=== PATIENT | male | born 1950 | race Caucasian/White ===

== ENCOUNTER 2016-06-24 11:38 | Emergency (ER) | payer OTHER ==
[2016-06-24 12:02] VITALS: BP 116/62; BMI 32.1
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
[2016-06-24] MEDS ORDERED: ANCEF VIAL 1 GM IM ONE (13:08)
[2016-06-24] MEDS ORDERED: ANCEF VIAL 1 GM ONE (13:13)
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
[2016-06-24] MEDS ORDERED: NEOSPORIN OINT ONE (13:42)
== END 2016-06-24 13:56 | disposition home or self-care (01) ==
LOC: ER 12:12
DX: S68.119A Complete traumatic metacarpophalangeal amputation of unspecified finger, initial encounter (principal); L08.89 Other specified local infections of the skin and subcutaneous tissue; W45.8XXA Other foreign body or object entering through skin, initial encounter; Y92.9 Unspecified place or not applicable; B95.62 Methicillin resistant Staphylococcus aureus infection as the cause of diseases classified elsewhere; B96.5 Pseudomonas (aeruginosa) (mallei) (pseudomallei) as the cause of diseases classified elsewhere
CPT/HCPCS: 73130; 87070; 87075; 87077; 87186; 87205; 96372; 99282; 99283; J0690

== ENCOUNTER 2021-10-09 09:49 | Observation (INO) ==
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
--- NOTE | 2021-10-09 11:22 | RAD ---
HISTORYPain and swelling diabetesSTUDYLeft foot three viewsCOMPARISONNoneFINDINGSNonspecific osteopenia and mild soft tissue swelling. No fracture, bone destruction, osteomyelitis or joint erosion is identified.IMPRESSIONNo significant osseous or articular abnormality identified.Electronically signed by: TORRES MACIEL (Oct 09, 2021 11:21:20)
[2021-10-09 11:26] LABS: BASOPHILS # (AUTO) 0.1 X10^3/uL (0.0-0.1); BASOPHILS % (AUTO) 0.6 % (0.2-1.0); EOSINOPHILS # (AUTO) 0.1 x10^3/uL (0.0-0.2); EOSINOPHILS % (AUTO) 0.3 % (0.9-2.9); HEMATOCRIT 39.1 % (42.0-54.0); HEMOGLOBIN 13.3 g/dL (13.5-18.0); LYMPHOCYTES # (AUTO) 1.5 X10^3/uL (1.3-2.9); LYMPHOCYTES % (AUTO) 8.7 % (21.0-51.0); MEAN CORPUSCULAR HEMOGLOBIN 30.9 pg (27.0-34.0); MEAN CORPUSCULAR HGB CONC 34.1 g/dL (33.0-35.0); MEAN CORPUSCULAR VOLUME 90.6 fL (80.0-100.0); MEAN PLATELET VOLUME 9.3 fL (7.4-11.0); MONOCYTES # (AUTO) 1.5 x10^3/uL (0.3-0.8); MONOCYTES % (AUTO) 8.9 % (0.0-13.0); NEUTROPHILS % (AUTO) 81.5 % (42.0-75.0); RED BLOOD COUNT 4.31 X10^6/uL (4.7-6.0); RED CELL DISTRIBUTION WIDTH 12.7 % (11.6-16.5); WHITE BLOOD COUNT 17.1 X10^3/uL (3.6-10.0)
[2021-10-09 11:29] LABS: BLOOD UREA NITROGEN 8 mg/dL (7-18); CALCIUM 8.5 mg/dL (8.5-10.1); CARBON DIOXIDE 28.1 mmol/L (21-32); CHLORIDE 100 mmol/L (98-107); COR NA(FOR HYPERGLY) 139 mmol/L (136-145); CREATININE 0.75 mg/dL (0.70-1.30); SODIUM 134 mmol/L (136-145); eGFR NON BLACK RACES > 60 (>60)
[2021-10-09 12:04] LABS: ALANINE AMINOTRANSFERASE 25 Units/L (12-78); ALBUMIN 3.2 g/dL (3.4-5.0); ALKALINE PHOSPHATASE 88 Units/L (46-116); ASPARTATE AMINO TRANSFERASE 13 Units/L (15-37); COR CA(FOR HYPOALB) 9.1 mg/dL (8.5-10.1); TOTAL PROTEIN 6.7 g/dL (6.4-8.2)
[2021-10-09] MEDS ORDERED: ANCEF VIAL 1 GRAM IVP ONE (12:22)
[2021-10-09] MEDS ORDERED: NS 100 ML IV 100 ML ONE (12:54)
[2021-10-09] MEDS ORDERED: ANCEF VIAL 1 GRAM ONE (12:54)
[2021-10-09] MEDS ORDERED: NS 1,000 ML IV 1,000 ML ONE (12:55)
[2021-10-09] MEDS: NS 1,000 ML IV 1,000 ML IV SCH ×2 (12:59→20:43)
[2021-10-09] MEDS ORDERED: NS 1,000 ML IV 1,000 ML IV SCH (14:00)
[2021-10-09] MEDS: ANCEF VIAL 1 GRAM IVP SCH ×2 (14:58→21:11)
[2021-10-09] MEDS ORDERED: NovoLIN R (or HumuLIN R) SUBCUT PRN (18:01)
[2021-10-09] MEDS ORDERED: SNACK - Diabetic Appropriate PO SCH (20:00)
[2021-10-09] MEDS ORDERED: GLUCOPHAGE ONE (20:14)
[2021-10-09] MEDS: GLUCOPHAGE PO SCH (20:39)
[2021-10-09] MEDS: LEVEMIR SC SCH (20:40)
[2021-10-09] MEDS ORDERED: PRAVASTATIN SODIUM 80 MG PO SCH (21:00)
[2021-10-09] MEDS: SNACK - Diabetic Appropriate PO SCH (21:11)
[2021-10-10] MEDS: NS 1,000 ML IV 1,000 ML IV SCH ×3 (05:43→23:19)
[2021-10-10] MEDS: ANCEF VIAL 1 GRAM IVP SCH ×2 (05:44→14:23)
[2021-10-10 06:44] LABS: BASOPHILS # (AUTO) 0.1 X10^3/uL (0.0-0.1); BASOPHILS % (AUTO) 0.5 % (0.2-1.0); EOSINOPHILS # (AUTO) 0.1 x10^3/uL (0.0-0.2); EOSINOPHILS % (AUTO) 0.8 % (0.9-2.9); HEMATOCRIT 36.7 % (42.0-54.0); HEMOGLOBIN 12.4 g/dL (13.5-18.0); LYMPHOCYTES % (AUTO) 13.1 % (21.0-51.0); MEAN CORPUSCULAR HEMOGLOBIN 30.5 pg (27.0-34.0); MEAN CORPUSCULAR HGB CONC 33.7 g/dL (33.0-35.0); MEAN CORPUSCULAR VOLUME 90.5 fL (80.0-100.0); MEAN PLATELET VOLUME 9.2 fL (7.4-11.0); MONOCYTES # (AUTO) 1.3 x10^3/uL (0.3-0.8); MONOCYTES % (AUTO) 8.7 % (0.0-13.0); NEUTROPHILS # (AUTO) 11.5 x10^3/uL (2.2-4.8); NEUTROPHILS % (AUTO) 76.9 % (42.0-75.0); RED BLOOD COUNT 4.05 X10^6/uL (4.7-6.0); RED CELL DISTRIBUTION WIDTH 12.8 % (11.6-16.5)
[2021-10-10 06:58] LABS: ALANINE AMINOTRANSFERASE 15 Units/L (12-78); ALBUMIN 2.7 g/dL (3.4-5.0); ALKALINE PHOSPHATASE 74 Units/L (46-116); ASPARTATE AMINO TRANSFERASE 12 Units/L (15-37); BLOOD UREA NITROGEN 6 mg/dL (7-18); CALCIUM 7.9 mg/dL (8.5-10.1); CARBON DIOXIDE 27.5 mmol/L (21-32); CHLORIDE 104 mmol/L (98-107); COR CA(FOR HYPOALB) 8.9 mg/dL (8.5-10.1); CREATININE 0.75 mg/dL (0.70-1.30); SODIUM 139 mmol/L (136-145); eGFR NON BLACK RACES > 60 (>60)
[2021-10-10] MEDS ORDERED: GLUCOPHAGE ONE (08:57)
[2021-10-10] MEDS ORDERED: FOSINOPRIL 10 MG PO SCH (09:00)
[2021-10-10] MEDS: GLUCOPHAGE PO SCH ×2 (09:15→20:24)
[2021-10-10 11:21] VITALS: BMI 23.6
[2021-10-10] MEDS ORDERED: PATIENT'S HOME MEDICATION PO SCH ×2 (12:00)
[2021-10-10] MEDS: PATIENT'S HOME MEDICATION (Empagliflozin 25 mg Tablet) PO SCH (14:22)
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
--- NOTE | 2021-10-10 14:36 | PCM.PROG ---
Progress Note - Progress Note for Day of Date of Exam: 10/10/21 - Subjective Subjective: PT IS 71 WM ER ADMISSION WITH CELLULITIS TO LEFT FOOT. PT IS CURRENTLY ON IV ANCEF, WILL START ON VANCOMYCIN THIS AM. PT HAS SMALL AREA TO SOLE OF LEFT FOOT THAT APPEARS MORE BLANCHED, POSSIBLE ABSCESS FORMATION. PLAN TO CONSULT DR CHURCH. WBC 15, HGB 12.4, BUN 6, CREAT 0.75. PT REPORTS PAIN IS CONTROLLED AT THIS TIME AND DENIES ANY N/V OR FEBRILE SYMPTOMS. - Past Medical Family Social History Past Med/Fam/Surg Hx: No changes since H&P Allergies: Allergies No Known Drug Allergies Allergy (Verified 02/09/18 12:27) - Review of Systems ROS: No change since H&P - Vital Signs and I&O's Vital Signs: Temperature 98.2 F Pulse Rate [Right] 57 Pulse Rate 76 Respiratory Rate 18 Blood Pressure [Right Arm] 113/55 Blood Pressure 126/56 O2 Sat by Pulse Oximetry 96 Intake and Output: Intake & Output 10/08/21 10/09/21 10/10/21 10/11/21 11:59 11:59 11:59 11:59 Intake Total 1859 Balance 1859 - Physical Exam Oriented: Normal Eyes: Normal Ear: Normal Nose: Normal Throat: Normal Respiratory: Diminished (MILD BILATERAL LUNG BASES) Cardiovascular: Normal : Normal, Hematuria Tenderness: Normal Skin: Red, Tender, Hot, Wound (LEFT MEDIAL AND DORSAL FOOT) Musculoskeletal: Left, Foot, Swelling, Tender Psychiatric: Normal Mood Description: Calm Speech Pattern: Clear - Laboratory and Diagnostics Result Diagrams: 10/10/21 05:58 10/10/21 05:58 Labs: Laboratory WBC 15.0 X10^3/uL (3.6-10.0) H 10/10/21 05:58 RBC 4.05 X10^6/uL (4.7-6.0) L 10/10/21 05:58 Hgb 12.4 g/dL (13.5-18.0) L 10/10/21 05:58 Hct 36.7 % (42.0-54.0) L 10/10/21 05:58 MCV 90.5 fL (80.0-100.0) 10/10/21 05:58 MCH 30.5 pg (27.0-34.0) 10/10/21 05:58 MCHC 33.7 g/dL (33.0-35.0) 10/10/21 05:58 RDW 12.8 % (11.6-16.5) 10/10/21 05:58 Plt Count 165 X10^3/uL (150.0-450.0) 10/10/21 05:58 MPV 9.2 fL (7.4-11.0) 10/10/21 05:58 Neut % (Auto) 76.9 % (42.0-75.0) H 10/10/21 05:58 Lymph % (Auto) 13.1 % (21.0-51.0) L 10/10/21 05:58 Edgar % (Auto) 8.7 % (0.0-13.0) 10/10/21 05:58 Eos % (Auto) 0.8 % (0.9-2.9) L 10/10/21 05:58 Baso % (Auto) 0.5 % (0.2-1.0) 10/10/21 05:58 Neut # (Auto) 11.5 x10^3/uL (2.2-4.8) H 10/10/21 05:58 Lymph # (Auto) 2.0 X10^3/uL (1.3-2.9) 10/10/21 05:58 Edgar # (Auto) 1.3 x10^3/uL (0.3-0.8) H 10/10/21 05:58 Eos # (Auto) 0.1 x10^3/uL (0.0-0.2) 10/10/21 05:58 Baso # (Auto) 0.1 X10^3/uL (0.0-0.1) 10/10/21 05:58 Absolute Nucleated RBC 0.1 /100WBC 10/10/21 05:58 Sodium 139 mmol/L (136-145) 10/10/21 05:58 Corrected Sodium TNP 10/10/21 05:58 Potassium 3.5 mmol/L (3.5-5.1) 10/10/21 05:58 Chloride 104 mmol/L (98-107) 10/10/21 05:58 Carbon Dioxide 27.5 mmol/L (21-32) 10/10/21 05:58 BUN 6 mg/dL (7-18) L 10/10/21 05:58 Creatinine 0.75 mg/dL (0.70-1.30) 10/10/21 05:58 Est GFR (MDRD) Af Amer > 60 (>60) 10/10/21 05:58 Est GFR (MDRD) Non-Af > 60 (>60) 10/10/21 05:58 Glucose 109 mg/dL (65-99) H 10/10/21 05:58 POC Glucose (mg/dL) 115 mg/dL (65-99) H 10/10/21 11:24 Hemoglobin A1c 8.1 % 10/10/21 05:58 Lactic Acid 1.4 mmol/L (0.4-2.0) 10/09/21 11:47 Calcium 7.9 mg/dL (8.5-10.1) L 10/10/21 05:58 Corrected Calcium 8.9 mg/dL (8.5-10.1) 10/10/21 05:58 Total Bilirubin 0.60 mg/dL (0.2-1.0) 10/10/21 05:58 AST 12 Units/L (15-37) L 10/10/21 05:58 ALT 15 Units/L (12-78) 10/10/21 05:58 Alkaline Phosphatase 74 Units/L (46-116) 10/10/21 05:58 Total Protein 6.0 g/dL (6.4-8.2) L 10/10/21 05:58 Albumin 2.7 g/dL (3.4-5.0) L 10/10/21 05:58 Globulin 3.3 g/dL (2.5-4.5) 10/10/21 05:58 Albumin/Globulin Ratio 0.8 Ratio (1.1-2.1) L 10/10/21 05:58 SARS-CoV-2 (PCR) Negative (NEGATIVE) 10/09/21 12:41 - Plan (1) Cellulitis of left foot Status: Acute Plan: BLOOD AND WOUND CULTURE OBTAINED. IV ATBX, PAIN CONTROL PRN. XRAY LEFT FOOT OBTAINED IN ER. BP AND BS CONTROL, VERIFY AND RESUME HOME MEDICATION (2) Diabetes Status: Acute
[2021-10-10] MEDS ORDERED: PHARMACY COMMENT IV SCH (15:00)
[2021-10-10] MEDS ORDERED: PHARMACY CONSULT - VANCOMYCIN XX SCH (15:00)
[2021-10-10] MEDS ORDERED: VANCOMYCIN IV *PREMIX 1 G/200 ML BAG 1 G/200 ML PIGGYBACK IV ONE (16:30)
[2021-10-10] MEDS: VANCOMYCIN 1 GRAM PREMIX (ADDVANTAGE) 250 ML IV SCH (16:40)
[2021-10-10] MEDS: LEVEMIR SC SCH (20:19)
[2021-10-10] MEDS: PRAVACHOL PO SCH (20:21)
[2021-10-10] MEDS: SNACK - Diabetic Appropriate PO SCH (20:24)
[2021-10-11] MEDS ORDERED: VANCOMYCIN HCL ONE (03:49)
[2021-10-11] MEDS ORDERED: NS 250 ML IV 250 ML IV ONE (03:49)
[2021-10-11] MEDS: VANCOMYCIN 1 GRAM PREMIX (ADDVANTAGE) 250 ML IV SCH (04:00)
[2021-10-11] MEDS ORDERED: D50W ABBOJECT SYR IV ONE (05:58)
[2021-10-11] MEDS ORDERED: D50W ABBOJECT SYR ONE (05:59)
[2021-10-11] MEDS: NS 1,000 ML IV 1,000 ML IV SCH ×3 (06:19→22:19)
[2021-10-11 06:21] LABS: BASOPHILS % (AUTO) 0.3 % (0.2-1.0); EOSINOPHILS # (AUTO) 0.1 x10^3/uL (0.0-0.2); EOSINOPHILS % (AUTO) 0.8 % (0.9-2.9); HEMATOCRIT 36.1 % (42.0-54.0); HEMOGLOBIN 12.6 g/dL (13.5-18.0); LYMPHOCYTES # (AUTO) 1.8 X10^3/uL (1.3-2.9); LYMPHOCYTES % (AUTO) 13.7 % (21.0-51.0); MEAN CORPUSCULAR HEMOGLOBIN 31.2 pg (27.0-34.0); MEAN CORPUSCULAR HGB CONC 34.8 g/dL (33.0-35.0); MEAN CORPUSCULAR VOLUME 89.4 fL (80.0-100.0); MEAN PLATELET VOLUME 9.5 fL (7.4-11.0); MONOCYTES # (AUTO) 1.3 x10^3/uL (0.3-0.8); MONOCYTES % (AUTO) 9.9 % (0.0-13.0); NEUTROPHILS % (AUTO) 75.3 % (42.0-75.0); RED BLOOD COUNT 4.03 X10^6/uL (4.7-6.0); RED CELL DISTRIBUTION WIDTH 13.1 % (11.6-16.5); WHITE BLOOD COUNT 13.2 X10^3/uL (3.6-10.0)
[2021-10-11 06:38] LABS: ALANINE AMINOTRANSFERASE 14 Units/L (12-78); ALBUMIN 2.5 g/dL (3.4-5.0); ALKALINE PHOSPHATASE 93 Units/L (46-116); ASPARTATE AMINO TRANSFERASE 11 Units/L (15-37); BLOOD UREA NITROGEN 9 mg/dL (7-18); CALCIUM 8.1 mg/dL (8.5-10.1); CARBON DIOXIDE 27.8 mmol/L (21-32); CHLORIDE 105 mmol/L (98-107); COR CA(FOR HYPOALB) 9.3 mg/dL (8.5-10.1); SODIUM 140 mmol/L (136-145); eGFR NON BLACK RACES > 60 (>60)
[2021-10-11] MEDS: VANCOMYCIN IV *PREMIX 1 G/200 ML BAG 1 G/200 ML PIGGYBACK IV SCH ×2 (09:30→20:56)
[2021-10-11] MEDS: GLUCOPHAGE PO SCH (10:03)
[2021-10-11] MEDS: PATIENT'S HOME MEDICATION (Empagliflozin 25 mg Tablet) PO SCH (11:32)
--- NOTE | 2021-10-11 14:38 | CT ---
HISTORYLEFT FOOT cellulitisSTUDYCT left foot with IV contrastCOMPARISONNoneTECHNIQUEMultiple axial images of the left foot are obtained following the administration of IV contrast. Coronal and sagittal reformats were performed and reviewed. Dose reduction techniques including Automated Exposure Control (AEC) and adjustment of mA and kV were utilized.FINDINGSDiffuse edema is seen in the lower leg, ankle, and left foot. No evidence of an abscess is seen. Arthritic changes are seen in the ankle, foot, and toes. No fracture or dislocation is seen. There is no evidence of bone destruction to suggest osteomyelitis.IMPRESSIONDiffuse edema could be bland edema or cellulitis. No evidence of abscess or osteomyelitis is seen.Electronically signed by: Silvio Shook (Oct 11, 2021 14:36:18)
[2021-10-11] MEDS ORDERED: TRAMADOL ACETAMINOPHEN PO PRN (17:34)
[2021-10-11] MEDS ORDERED: ZOLOFT ONE (20:22)
[2021-10-11] MEDS: SNACK - Diabetic Appropriate PO SCH (20:55)
[2021-10-11] MEDS: PRAVACHOL PO SCH (20:56)
[2021-10-11] MEDS ORDERED: ZOLOFT PO SCH (21:00)
[2021-10-11] MEDS ORDERED: LEVEMIR SC SCH (21:00)
[2021-10-11] MEDS ORDERED: LIPITOR TAB 20 MG PO SCH (21:00)
[2021-10-12 05:38] LABS: BASOPHILS # (AUTO) 0.1 X10^3/uL (0.0-0.1); BASOPHILS % (AUTO) 0.5 % (0.2-1.0); EOSINOPHILS # (AUTO) 0.2 x10^3/uL (0.0-0.2); EOSINOPHILS % (AUTO) 1.7 % (0.9-2.9); HEMOGLOBIN 12.8 g/dL (13.5-18.0); LYMPHOCYTES # (AUTO) 1.8 X10^3/uL (1.3-2.9); LYMPHOCYTES % (AUTO) 16.8 % (21.0-51.0); MEAN CORPUSCULAR HEMOGLOBIN 31.1 pg (27.0-34.0); MEAN CORPUSCULAR HGB CONC 34.7 g/dL (33.0-35.0); MEAN CORPUSCULAR VOLUME 89.6 fL (80.0-100.0); MONOCYTES # (AUTO) 1.1 x10^3/uL (0.3-0.8); MONOCYTES % (AUTO) 10.6 % (0.0-13.0); NEUTROPHILS # (AUTO) 7.6 x10^3/uL (2.2-4.8); NEUTROPHILS % (AUTO) 70.4 % (42.0-75.0); RED BLOOD COUNT 4.13 X10^6/uL (4.7-6.0); RED CELL DISTRIBUTION WIDTH 13.1 % (11.6-16.5); WHITE BLOOD COUNT 10.8 X10^3/uL (3.6-10.0)
[2021-10-12 05:57] LABS: ALANINE AMINOTRANSFERASE 14 Units/L (12-78); ALBUMIN 2.5 g/dL (3.4-5.0); ALKALINE PHOSPHATASE 76 Units/L (46-116); ASPARTATE AMINO TRANSFERASE 13 Units/L (15-37); BLOOD UREA NITROGEN 11 mg/dL (7-18); CALCIUM 8.1 mg/dL (8.5-10.1); CARBON DIOXIDE 28.8 mmol/L (21-32); CHLORIDE 106 mmol/L (98-107); COR CA(FOR HYPOALB) 9.3 mg/dL (8.5-10.1); COR NA(FOR HYPERGLY) 141 mmol/L (136-145); CREATININE 0.73 mg/dL (0.70-1.30); SODIUM 139 mmol/L (136-145); TOTAL PROTEIN 6.1 g/dL (6.4-8.2); eGFR NON BLACK RACES > 60 (>60)
[2021-10-12] MEDS: NS 1,000 ML IV 1,000 ML IV SCH (07:31)
[2021-10-12] MEDS ORDERED: TYLENOL 500 MG TAB EXTRA STRENGTH PO PRN (07:36)
[2021-10-12] MEDS ORDERED: ULTRAM PO PRN (07:36)
[2021-10-12] MEDS: PATIENT'S HOME MEDICATION (Empagliflozin 25 mg Tablet) PO SCH (08:14)
[2021-10-12] MEDS: VANCOMYCIN IV *PREMIX 1 G/200 ML BAG 1 G/200 ML PIGGYBACK IV SCH (08:15)
[2021-10-12 12:02] VITALS: BP 142/63
[2021-10-12] MEDS ORDERED: PHARMACY COMMENT IV NR (20:30)
== END 2021-10-12 14:15 | disposition home or self-care (01) ==
LOC: MED/SURG 09:59 → ER 09:59 → MED/SURG 13:50
PROVIDERS: ADMIT Internal Medicine; ATTEND Internal Medicine
DX: B96.4 Proteus (mirabilis) (morganii) as the cause of diseases classified elsewhere; F41.8 Other specified anxiety disorders; L03.116 Cellulitis of left lower limb; Z86.14 Personal history of Methicillin resistant Staphylococcus aureus infection; E11.65 Type 2 diabetes mellitus with hyperglycemia; B96.1 Klebsiella pneumoniae [K. pneumoniae] as the cause of diseases classified elsewhere; E78.2 Mixed hyperlipidemia; Z20.822 Contact with and (suspected) exposure to COVID-19

== ENCOUNTER 2022-01-25 15:40 | Inpatient (IN) ==
[2022-01-25] MEDS: NS 1,000 ML IV 1,000 ML IV SCH (17:00)
[2022-01-25] MEDS: ZOSYN VIAL 3.375 GRAMS 3.375 G in NS 100 ML IV 100 ML IV SCH ×2 (17:00→21:31)
[2022-01-25 17:50] VITALS: BMI 23.4
[2022-01-25 18:05] LABS: BASOPHILS # (AUTO) 0.1 X10^3/uL (0.0-0.1); BASOPHILS % (AUTO) 0.5 % (0.2-1.0); EOSINOPHILS # (AUTO) 0.1 x10^3/uL (0.0-0.2); EOSINOPHILS % (AUTO) 0.8 % (0.9-2.9); HEMATOCRIT 39.9 % (42.0-54.0); HEMOGLOBIN 13.9 g/dL (13.5-18.0); LYMPHOCYTES # (AUTO) 1.6 X10^3/uL (1.3-2.9); LYMPHOCYTES % (AUTO) 16.6 % (21.0-51.0); MEAN CORPUSCULAR HEMOGLOBIN 31.3 pg (27.0-34.0); MEAN CORPUSCULAR HGB CONC 34.8 g/dL (33.0-35.0); MEAN CORPUSCULAR VOLUME 89.7 fL (80.0-100.0); MONOCYTES # (AUTO) 1.1 x10^3/uL (0.3-0.8); MONOCYTES % (AUTO) 11.6 % (0.0-13.0); NEUTROPHILS # (AUTO) 6.9 x10^3/uL (2.2-4.8); NEUTROPHILS % (AUTO) 70.5 % (42.0-75.0); RED BLOOD COUNT 4.45 X10^6/uL (4.7-6.0); RED CELL DISTRIBUTION WIDTH 12.7 % (11.6-16.5); WHITE BLOOD COUNT 9.8 X10^3/uL (3.6-10.0)
[2022-01-25 18:14] LABS: ALANINE AMINOTRANSFERASE 17 Units/L (12-78); ALBUMIN 3.2 g/dL (3.4-5.0); ALKALINE PHOSPHATASE 85 Units/L (46-116); ASPARTATE AMINO TRANSFERASE 14 Units/L (15-37); BLOOD UREA NITROGEN 20 mg/dL (7-18); CALCIUM 8.8 mg/dL (8.5-10.1); CARBON DIOXIDE 26.4 mmol/L (21-32); CHLORIDE 102 mmol/L (98-107); COR CA(FOR HYPOALB) 9.4 mg/dL (8.5-10.1); COR NA(FOR HYPERGLY) 140 mmol/L (136-145); CREATININE 1.09 mg/dL (0.70-1.30); SODIUM 139 mmol/L (136-145); eGFR NON BLACK RACES > 60 (>60)
[2022-01-25] MEDS: NovoLIN R (or HumuLIN R) SUBCUT PRN (21:32)
[2022-01-26] MEDS: ZOSYN VIAL 3.375 GRAMS 3.375 G in NS 100 ML IV 100 ML IV SCH ×3 (05:19→21:34)
[2022-01-26 05:30] LABS: BASOPHILS # (AUTO) 0.1 X10^3/uL (0.0-0.1); BASOPHILS % (AUTO) 0.7 % (0.2-1.0); EOSINOPHILS # (AUTO) 0.2 x10^3/uL (0.0-0.2); EOSINOPHILS % (AUTO) 2.6 % (0.9-2.9); HEMATOCRIT 37.5 % (42.0-54.0); HEMOGLOBIN 13.1 g/dL (13.5-18.0); LYMPHOCYTES # (AUTO) 2.3 X10^3/uL (1.3-2.9); LYMPHOCYTES % (AUTO) 27.8 % (21.0-51.0); MEAN CORPUSCULAR HGB CONC 34.8 g/dL (33.0-35.0); MEAN CORPUSCULAR VOLUME 89.1 fL (80.0-100.0); MEAN PLATELET VOLUME 9.4 fL (7.4-11.0); MONOCYTES % (AUTO) 12.6 % (0.0-13.0); NEUTROPHILS # (AUTO) 4.6 x10^3/uL (2.2-4.8); NEUTROPHILS % (AUTO) 56.3 % (42.0-75.0); RED BLOOD COUNT 4.21 X10^6/uL (4.7-6.0); RED CELL DISTRIBUTION WIDTH 12.7 % (11.6-16.5); WHITE BLOOD COUNT 8.2 X10^3/uL (3.6-10.0)
[2022-01-26 05:44] LABS: ALANINE AMINOTRANSFERASE 15 Units/L (12-78); ALBUMIN 2.9 g/dL (3.4-5.0); ALKALINE PHOSPHATASE 74 Units/L (46-116); ASPARTATE AMINO TRANSFERASE 14 Units/L (15-37); BLOOD UREA NITROGEN 17 mg/dL (7-18); CALCIUM 8.3 mg/dL (8.5-10.1); CARBON DIOXIDE 26.7 mmol/L (21-32); CHLORIDE 105 mmol/L (98-107); COR CA(FOR HYPOALB) 9.2 mg/dL (8.5-10.1); CREATININE 0.97 mg/dL (0.70-1.30); SODIUM 141 mmol/L (136-145); TOTAL PROTEIN 6.4 g/dL (6.4-8.2); eGFR NON BLACK RACES > 60 (>60)
[2022-01-26] MEDS: NS 1,000 ML IV 1,000 ML IV SCH ×3 (06:52→19:13)
[2022-01-26] MEDS: LOVENOX INJ 40 MG SYR SC SCH (09:35)
[2022-01-26] MEDS ORDERED: [UNRECOGNIZED DRUG - OTHER] subcut SCH (10:15)
[2022-01-26] MEDS ORDERED: INSULIN ASPART U 100 UNIT/ML subcut SCH (10:15)
[2022-01-26] MEDS ORDERED: PHARMACY CONSULT - VANCOMYCIN XX SCH (11:00)
[2022-01-26] MEDS: PATIENT'S HOME MEDICATION (Empagliflozin 25 mg Tablet) PO SCH (11:15)
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
[2022-01-26] MEDS: ASPIRIN EC 81 MG PO SCH (12:00)
[2022-01-26] MEDS: LIPITOR TAB 40 MG PO SCH (12:00)
[2022-01-26] MEDS: ZESTRIL TAB 20 MG PO SCH (12:00)
[2022-01-26] MEDS: VANCOMYCIN IV *PREMIX 1 G/200 ML BAG 1 G/200 ML PIGGYBACK IV SCH ×2 (12:30→20:19)
[2022-01-26] MEDS ORDERED: ZESTRIL TAB 20 MG ONE (13:09)
--- NOTE | 2022-01-26 16:56 | RAD ---
HISTORYCELLULITIS, LEFT HAND 4TH DIGITSTUDYHAND, LEFT x-ray three viewsCOMPARISONNoneFINDINGSPrior amputation of the 2nd and 3rd fingers. Soft tissue swelling is seen in the 4th finger. The cannot be extended limiting evaluation. No obvious bone destruction or fracture is seen. A few small metallic foreign bodies are suspected in the soft tissues of the palmar aspect of the hand near the 5th metatarsal and in the 5th finger. [id number] arthritic changes are seen in the remaining MTP joints. Mild arthritic changes are seen in the wrist. No gas is seen in the soft tissues.IMPRESSIONSoft tissue swelling is seen in the 4th finger without evidence of osteomyelitis.Electronically signed by: Slivio Shook (Jan 26, 2022 16:54:38)
[2022-01-26] MEDS: SNACK - Diabetic Appropriate PO SCH (19:40)
[2022-01-26] MEDS ORDERED: ZOLOFT ONE (20:09)
[2022-01-26] MEDS: ZOLOFT PO SCH (20:17)
[2022-01-26] MEDS: NovoLIN R (or HumuLIN R) SUBCUT PRN (20:20)
[2022-01-27] MEDS: NS 1,000 ML IV 1,000 ML IV SCH ×3 (04:11→21:09)
[2022-01-27 04:56] LABS: BASOPHILS # (AUTO) 0.1 X10^3/uL (0.0-0.1); BASOPHILS % (AUTO) 0.7 % (0.2-1.0); EOSINOPHILS # (AUTO) 0.3 x10^3/uL (0.0-0.2); HEMATOCRIT 38.3 % (42.0-54.0); HEMOGLOBIN 13.1 g/dL (13.5-18.0); LYMPHOCYTES # (AUTO) 2.4 X10^3/uL (1.3-2.9); LYMPHOCYTES % (AUTO) 27.5 % (21.0-51.0); MEAN CORPUSCULAR HEMOGLOBIN 30.8 pg (27.0-34.0); MEAN CORPUSCULAR HGB CONC 34.3 g/dL (33.0-35.0); MEAN PLATELET VOLUME 9.1 fL (7.4-11.0); MONOCYTES # (AUTO) 0.9 x10^3/uL (0.3-0.8); MONOCYTES % (AUTO) 10.3 % (0.0-13.0); NEUTROPHILS # (AUTO) 5.1 x10^3/uL (2.2-4.8); NEUTROPHILS % (AUTO) 58.5 % (42.0-75.0); RED BLOOD COUNT 4.26 X10^6/uL (4.7-6.0); RED CELL DISTRIBUTION WIDTH 12.8 % (11.6-16.5); WHITE BLOOD COUNT 8.7 X10^3/uL (3.6-10.0)
[2022-01-27 05:09] LABS: ALANINE AMINOTRANSFERASE 15 Units/L (12-78); ALBUMIN 2.8 g/dL (3.4-5.0); ALKALINE PHOSPHATASE 70 Units/L (46-116); ASPARTATE AMINO TRANSFERASE 14 Units/L (15-37); BLOOD UREA NITROGEN 14 mg/dL (7-18); CALCIUM 8.3 mg/dL (8.5-10.1); CARBON DIOXIDE 25.4 mmol/L (21-32); CHLORIDE 107 mmol/L (98-107); COR CA(FOR HYPOALB) 9.3 mg/dL (8.5-10.1); CREATININE 0.84 mg/dL (0.70-1.30); SODIUM 142 mmol/L (136-145); TOTAL PROTEIN 6.4 g/dL (6.4-8.2); eGFR NON BLACK RACES > 60 (>60)
[2022-01-27] MEDS: ZOSYN VIAL 3.375 GRAMS 3.375 G in NS 100 ML IV 100 ML IV SCH ×3 (05:13→21:22)
[2022-01-27] MEDS: ASPIRIN EC 81 MG PO SCH (10:15)
[2022-01-27] MEDS: ZESTRIL TAB 20 MG PO SCH (10:15)
[2022-01-27] MEDS: LIPITOR TAB 40 MG PO SCH (10:15)
[2022-01-27] MEDS ORDERED: ZESTRIL TAB 20 MG ONE (10:32)
[2022-01-27] MEDS: VANCOMYCIN IV *PREMIX 1 G/200 ML BAG 1 G/200 ML PIGGYBACK IV SCH ×2 (10:36→21:11)
[2022-01-27] MEDS: LOVENOX INJ 40 MG SYR SC SCH (10:37)
[2022-01-27] MEDS: PATIENT'S HOME MEDICATION (Empagliflozin 25 mg Tablet) PO SCH (15:09)
[2022-01-27] MEDS: ALOGLIPTIN 25 MG PO SCH (15:09)
--- NOTE | 2022-01-27 17:31 | DR.PROGNOT ---
Hospital Progress Notes - Progress Note for Day of: Progress Note Date: 01/27/22 - Chief Complaint Chief Complaint: slow improvement with less swelling and minimal drainage Lt 4th finger . Xray aa; no osteomyelitis .. - Past Medical Family Social History Past Med/Fam/Surg Hx: No changes since H&P Allergies: Allergies No Known Drug Allergies Allergy (Verified 02/09/18 12:27) - Review Of Systems ROS: No change since H&P - Vital Signs Vital Signs: Temperature 97.9 F Pulse Rate [Bilateral Radial] 52 Pulse Rate 76 Respiratory Rate 18 Blood Pressure [Right Arm] 113/55 O2 Sat by Pulse Oximetry 95 - Physical Exam Oriented: Normal Eyes: Normal Ear: Normal Nose: Normal Throat: Normal Respiratory: Normal Cardiovascular: Normal : Normal Skin: Other (erythema Lt 4th finger is less .. still stiff and swollen ) Speech Pattern: Clear, Appropriate - Laboratory and Diagnostics Result Diagrams: 01/27/22 04:10 01/27/22 04:10 Labs: 01/25/22 17:50 Blood Blood Culture - Preliminary 01/25/22 17:40 Blood Blood Culture - Preliminary Laboratory WBC 8.7 X10^3/uL (3.6-10.0) 01/27/22 04:10 RBC 4.26 X10^6/uL (4.7-6.0) L 01/27/22 04:10 Hgb 13.1 g/dL (13.5-18.0) L 01/27/22 04:10 Hct 38.3 % (42.0-54.0) L 01/27/22 04:10 MCV 90.0 fL (80.0-100.0) 01/27/22 04:10 MCH 30.8 pg (27.0-34.0) 01/27/22 04:10 MCHC 34.3 g/dL (33.0-35.0) 01/27/22 04:10 RDW 12.8 % (11.6-16.5) 01/27/22 04:10 Plt Count 207 X10^3/uL (150.0-450.0) 01/27/22 04:10 MPV 9.1 fL (7.4-11.0) 01/27/22 04:10 Neut % (Auto) 58.5 % (42.0-75.0) 01/27/22 04:10 Lymph % (Auto) 27.5 % (21.0-51.0) 01/27/22 04:10 [place] % (Auto) 10.3 % (0.0-13.0) 01/27/22 04:10 Eos % (Auto) 3.0 % (0.9-2.9) H 01/27/22 04:10 Baso % (Auto) 0.7 % (0.2-1.0) 01/27/22 04:10 Neut # (Auto) 5.1 x10^3/uL (2.2-4.8) H 01/27/22 04:10 Lymph # (Auto) 2.4 X10^3/uL (1.3-2.9) 01/27/22 04:10 [place] # (Auto) 0.9 x10^3/uL (0.3-0.8) H 01/27/22 04:10 Eos # (Auto) 0.3 x10^3/uL (0.0-0.2) H 01/27/22 04:10 Baso # (Auto) 0.1 X10^3/uL (0.0-0.1) 01/27/22 04:10 Absolute Nucleated RBC 0.0 /100WBC 01/27/22 04:10 Sodium 142 mmol/L (136-145) 01/27/22 04:10 Corrected Sodium TNP 01/27/22 04:10 Potassium 3.9 mmol/L (3.5-5.1) 01/27/22 04:10 Chloride 107 mmol/L (98-107) 01/27/22 04:10 Carbon Dioxide 25.4 mmol/L (21-32) 01/27/22 04:10 BUN 14 mg/dL (7-18) 01/27/22 04:10 Creatinine 0.84 mg/dL (0.70-1.30) 01/27/22 04:10 Est GFR (MDRD) Af Amer > 60 (>60) 01/27/22 04:10 Est GFR (MDRD) Non-Af > 60 (>60) 01/27/22 04:10 Glucose 87 mg/dL (65-99) 01/27/22 04:10 POC Glucose (mg/dL) 153 mg/dL (65-99) H 01/27/22 15:56 Calcium 8.3 mg/dL (8.5-10.1) L 01/27/22 04:10 Corrected Calcium 9.3 mg/dL (8.5-10.1) 01/27/22 04:10 Total Bilirubin 0.40 mg/dL (0.2-1.0) 01/27/22 04:10 AST 14 Units/L (15-37) L 01/27/22 04:10 ALT 15 Units/L (12-78) 01/27/22 04:10 Alkaline Phosphatase 70 Units/L (46-116) 01/27/22 04:10 C-Reactive Protein 29.30 mg/L (0-3.0) H 01/25/22 17:40 Total Protein 6.4 g/dL (6.4-8.2) 01/27/22 04:10 Albumin 2.8 g/dL (3.4-5.0) L 01/27/22 04:10 Globulin 3.6 g/dL (2.5-4.5) 01/27/22 04:10 Albumin/Globulin Ratio 0.8 Ratio (1.1-2.1) L 01/27/22 04:10 - Assessment and Plan 1: infected wound Lt 4 th finger . dep cellulitis . DM .. same local care ,soak in saline and H2O2 . IV ABT . to follow as out Pt
[2022-01-27] MEDS ORDERED: HYDROGEN PEROXIDE 3% ONE (18:06)
[2022-01-27] MEDS: SNACK - Diabetic Appropriate PO SCH (19:52)
[2022-01-27] MEDS ORDERED: PHARMACY COMMENT IV NR (20:30)
[2022-01-27 20:38] LABS: CREATININE 0.97 mg/dL (0.70-1.30); VANCOMYCIN,TROUGH 10.4 ug/mL (15-20)
[2022-01-27] MEDS ORDERED: ZOLOFT ONE (20:50)
[2022-01-27] MEDS: ZOLOFT PO SCH (21:07)
[2022-01-28 05:16] LABS: BASOPHILS # (AUTO) 0.1 X10^3/uL (0.0-0.1); BASOPHILS % (AUTO) 0.8 % (0.2-1.0); EOSINOPHILS # (AUTO) 0.3 x10^3/uL (0.0-0.2); EOSINOPHILS % (AUTO) 3.7 % (0.9-2.9); HEMATOCRIT 37.7 % (42.0-54.0); LYMPHOCYTES # (AUTO) 2.5 X10^3/uL (1.3-2.9); LYMPHOCYTES % (AUTO) 31.3 % (21.0-51.0); MEAN CORPUSCULAR HEMOGLOBIN 30.8 pg (27.0-34.0); MEAN CORPUSCULAR HGB CONC 34.3 g/dL (33.0-35.0); MEAN CORPUSCULAR VOLUME 89.6 fL (80.0-100.0); MONOCYTES # (AUTO) 0.9 x10^3/uL (0.3-0.8); MONOCYTES % (AUTO) 10.7 % (0.0-13.0); NEUTROPHILS # (AUTO) 4.3 x10^3/uL (2.2-4.8); NEUTROPHILS % (AUTO) 53.5 % (42.0-75.0); RED BLOOD COUNT 4.21 X10^6/uL (4.7-6.0); RED CELL DISTRIBUTION WIDTH 12.8 % (11.6-16.5)
[2022-01-28] MEDS: ZOSYN VIAL 3.375 GRAMS 3.375 G in NS 100 ML IV 100 ML IV SCH ×3 (05:20→21:50)
[2022-01-28 05:24] LABS: ALANINE AMINOTRANSFERASE 16 Units/L (12-78); ALBUMIN 2.7 g/dL (3.4-5.0); ALKALINE PHOSPHATASE 69 Units/L (46-116); ASPARTATE AMINO TRANSFERASE 14 Units/L (15-37); BLOOD UREA NITROGEN 12 mg/dL (7-18); CALCIUM 8.2 mg/dL (8.5-10.1); CARBON DIOXIDE 28.4 mmol/L (21-32); CHLORIDE 106 mmol/L (98-107); COR CA(FOR HYPOALB) 9.2 mg/dL (8.5-10.1); COR NA(FOR HYPERGLY) 144 mmol/L (136-145); CREATININE 0.83 mg/dL (0.70-1.30); SODIUM 143 mmol/L (136-145); TOTAL PROTEIN 6.2 g/dL (6.4-8.2); eGFR NON BLACK RACES > 60 (>60)
[2022-01-28] MEDS ORDERED: ZESTRIL TAB 20 MG ONE (09:43)
[2022-01-28] MEDS: NS 1,000 ML IV 1,000 ML IV SCH ×2 (09:47→23:57)
[2022-01-28] MEDS: ASPIRIN EC 81 MG PO SCH (09:47)
[2022-01-28] MEDS: LOVENOX INJ 40 MG SYR SC SCH (09:47)
[2022-01-28] MEDS: ZESTRIL TAB 20 MG PO SCH (09:47)
[2022-01-28] MEDS: LIPITOR TAB 40 MG PO SCH (09:48)
[2022-01-28] MEDS: VANCOMYCIN IV *PREMIX 1 G/200 ML BAG 1 G/200 ML PIGGYBACK IV SCH ×2 (09:48→20:38)
[2022-01-28] MEDS: BACTROBAN TOPICAL OINT TOP SCH (09:48)
[2022-01-28] MEDS: PATIENT'S HOME MEDICATION (Empagliflozin 25 mg Tablet) PO SCH (10:02)
[2022-01-28] MEDS: ALOGLIPTIN 25 MG PO SCH (10:02)
--- NOTE | 2022-01-28 10:34 | PCM.PROG ---
Progress Note - Progress Note for Day of Date of Exam: 01/27/22 - Subjective Subjective: WAS ADMITTED FOR CELLULITIS OF THE 4TH DIGIT ON THE LEFT HAND DUE TO RECENT INJURY. PATIENT WAS APPARENTLY SKINNING A DEER AND CUT HIS FINGER. 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 TODAY, HE IS ALERT AND ORIENTED, LYING IN BED ON MORNING ROUNDS. HE COMPLAINS OF MILD PAIN TO THE FINGER, BUT DENIES OTHER COMPLAINTS. ON EXAMINATION, HEART IS REGULAR IN RATE AND RHYTHM. BILATERAL LUNGS ARE CLEAR TO AUSCULTATION. ABDOMEN IS ROUND, SOFT, AND NON-TENDER WITH NORMAL BOWEL SOUNDS NOTED IN ALL QUADRANTS. THERE IS A LACERATION NOTED TO THE DISTAL PHALANX OF THE 4TH DIGIT ON THE LEFT HAND. ERYTHEMA AND EDEMA OF THAT DIGIT IS NOTED. IT HAS NOT SIGNIFICANTLY IMPROVED SINCE YESTERDAY. NO LOWER EXTREMITY EDEMA NOTED. HIS VITALS THIS MORNING ARE: 97.9-62-16-100%-119/57. LABS WERE OBTAINED. WBC 8.7, RBC 4.26, HGB 13.1, HCT 38.3, PLT COUNT 207, SODIUM 142, POTASSIUM 3.9, CHLORIDE 107, BUN 14, CREATININE 0.84, GLUCOSE 87, CALCIUM 8.3, TOTAL BILI 0.40, AST 14, ALT 15, ALK PHOS 70, TOTAL PROTEIN 6.4, ALBUMIN 2.8. WOUND CULTURE IS POSITIVE FOR STREPTOCOCCUS AGALACTIAE (GROUP B STREP). LEFT HAND XRAY WAS OBTAINED YESTERDAY AND REVEALED: Soft tissue swelling is seen in the 4th finger without evidence of osteomyelitis. HE IS CURRENTLY RECEIVING NORMAL SALINE AT 80 ML/HR, VANCOMYCIN 1G IV BID, ZOSYN 3.375G IV TID, OTBS ACHS, HUMULIN R SLIDING SCALE, LOVENOX 40MG SC DAILY, AND HIS HOME MEDICATIONS WERE RESUMED. WE WILL CONTINUE WITH CURRENT PLAN OF CARE TODAY. OTHERWISE, WE PLAN TO FOLLOW-UP WITH AM LABS AND CONTINUE TO MONITOR. TIME SPENT ON CLINICAL ASSESSMENT, REVIWING LABS AND IMAGING, DECISION MAKING, AND DOCUMENTATION GREATER THAN 45 MINUTES. - Past Medical Family Social History Past Med/Fam/Surg Hx: No changes since H&P Allergies: Allergies No Known Drug Allergies Allergy (Verified 02/09/18 12:27) - Review of Systems ROS: No change since H&P - Vital Signs and I&O's Vital Signs: Temperature 98 F Pulse Rate [Bilateral Radial] 55 Pulse Rate 76 Respiratory Rate 20 Blood Pressure [Right Arm] 139/65 O2 Sat by Pulse Oximetry 96 Intake and Output: Intake & Output 01/25/22 01/26/22 01/27/22 01/28/22 11:59 11:59 11:59 11:59 Intake Total 1153 / 1153 4061 / 4061 3245 / 3245 Output Total 1200 / 1200 2600 / 2600 2225 / 2225 Balance -47 / -47 1461 / 1461 1020 / 1020 - Physical Exam Oriented: Normal Eyes: Normal Ear: Normal Nose: Normal Throat: Normal Respiratory: Normal Cardiovascular: Normal : Normal Auscultation: Bowel Sounds: Normal Palpation: Normal Tenderness: Normal Skin: Normal, Other (erythema and edema Lt 4th finger ) Psychiatric: Normal Mood Description: Calm Affect: Normal Speech Pattern: Clear, Appropriate - Laboratory and Diagnostics Result Diagrams: 01/28/22 04:10 01/28/22 04:10 Labs: 01/25/22 17:50 Blood Blood Culture - Preliminary 01/25/22 17:40 Blood Blood Culture - Preliminary Laboratory WBC 8.0 X10^3/uL (3.6-10.0) 01/28/22 04:10 RBC 4.21 X10^6/uL (4.7-6.0) L 01/28/22 04:10 Hgb 13.0 g/dL (13.5-18.0) L 01/28/22 04:10 Hct 37.7 % (42.0-54.0) L 01/28/22 04:10 MCV 89.6 fL (80.0-100.0) 01/28/22 04:10 MCH 30.8 pg (27.0-34.0) 01/28/22 04:10 MCHC 34.3 g/dL (33.0-35.0) 01/28/22 04:10 RDW 12.8 % (11.6-16.5) 01/28/22 04:10 Plt Count 205 X10^3/uL (150.0-450.0) 01/28/22 04:10 MPV 9.0 fL (7.4-11.0) 01/28/22 04:10 Neut % (Auto) 53.5 % (42.0-75.0) 01/28/22 04:10 Lymph % (Auto) 31.3 % (21.0-51.0) 01/28/22 04:10 [place] % (Auto) 10.7 % (0.0-13.0) 01/28/22 04:10 Eos % (Auto) 3.7 % (0.9-2.9) H 01/28/22 04:10 Baso % (Auto) 0.8 % (0.2-1.0) 01/28/22 04:10 Neut # (Auto) 4.3 x10^3/uL (2.2-4.8) 01/28/22 04:10 Lymph # (Auto) 2.5 X10^3/uL (1.3-2.9) 01/28/22 04:10 [place] # (Auto) 0.9 x10^3/uL (0.3-0.8) H 01/28/22 04:10 Eos # (Auto) 0.3 x10^3/uL (0.0-0.2) H 01/28/22 04:10 Baso # (Auto) 0.1 X10^3/uL (0.0-0.1) 01/28/22 04:10 Absolute Nucleated RBC 0.0 /100WBC 01/28/22 04:10 Sodium 143 mmol/L (136-145) 01/28/22 04:10 Corrected Sodium 144 mmol/L (136-145) 01/28/22 04:10 Potassium 3.9 mmol/L (3.5-5.1) 01/28/22 04:10 Chloride 106 mmol/L (98-107) 01/28/22 04:10 Carbon Dioxide 28.4 mmol/L (21-32) 01/28/22 04:10 BUN 12 mg/dL (7-18) 01/28/22 04:10 Creatinine 0.83 mg/dL (0.70-1.30) 01/28/22 04:10 Est GFR (MDRD) Af Amer > 60 (>60) 01/28/22 04:10 Est GFR (MDRD) Non-Af > 60 (>60) 01/28/22 04:10 Glucose 132 mg/dL (65-99) H 01/28/22 04:10 POC Glucose (mg/dL) 191 mg/dL (65-99) H 01/27/22 20:01 Calcium 8.2 mg/dL (8.5-10.1) L 01/28/22 04:10 Corrected Calcium 9.2 mg/dL (8.5-10.1) 01/28/22 04:10 Total Bilirubin 0.40 mg/dL (0.2-1.0) 01/28/22 04:10 AST 14 Units/L (15-37) L 01/28/22 04:10 ALT 16 Units/L (12-78) 01/28/22 04:10 Alkaline Phosphatase 69 Units/L (46-116) 01/28/22 04:10 C-Reactive Protein 29.30 mg/L (0-3.0) H 01/25/22 17:40 Total Protein 6.2 g/dL (6.4-8.2) L 01/28/22 04:10 Albumin 2.7 g/dL (3.4-5.0) L 01/28/22 04:10 Globulin 3.5 g/dL (2.5-4.5) 01/28/22 04:10 Albumin/Globulin Ratio 0.8 Ratio (1.1-2.1) L 01/28/22 04:10 Vancomycin Trough 10.4 ug/mL (15-20) L 01/27/22 20:01 SSTI (PCR) See scanned report 01/26/22 10:10 - Plan (1) Cellulitis of finger of left hand Status: Acute Plan: NORMAL SALINE AT 80 ML/HR, VANCOMYCIN 1G IV BID, ZOSYN 3.375G IV TID, OTBS ACHS, HUMULIN R SLIDING SCALE, LOVENOX 40MG SC DAILY, AND HIS HOME MEDICATIONS WERE RESUMED. (2) Diabetes Status: Chronic Qualifiers: Diabetes mellitus type: type 2 Diabetes mellitus shot tube machine tender insulin use: with shot tube machine tender use Diabetes mellitus complication status: with hyperglycemia Qualified Code(s): E11.65 - Type 2 diabetes mellitus with hyperglycemia; Z79.4 - intermediate (current) use of insulin (3) Hyperlipidemia Status: Chronic Qualifiers: Hyperlipidemia type: mixed hyperlipidemia Qualified Code(s): E78.2 - Mixed hyperlipidemia
--- NOTE | 2022-01-28 10:40 | PCM.PROG ---
Progress Note - Progress Note for Day of Date of Exam: 01/28/22 - Subjective Subjective: WAS ADMITTED FOR CELLULITIS OF THE 4TH DIGIT ON THE LEFT HAND DUE TO RECENT INJURY. PATIENT WAS APPARENTLY SKINNING A DEER AND CUT HIS FINGER. 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 NO OSTEOMYELITIS WAS IDENTIFIED ON THE HAND XRAY. TODAY, HE IS ALERT AND ORIENTED, LYING IN BED ON MORNING ROUNDS. HE COMPLAINS OF MILD PAIN TO THE FINGER, BUT DENIES OTHER COMPLAINTS. ON EXAMINATION, HEART IS REGULAR IN RATE AND RHYTHM. BILATERAL LUNGS ARE CLEAR TO AUSCULTATION. ABDOMEN IS ROUND, SOFT, AND NON-TENDER WITH NORMAL BOWEL SOUNDS NOTED IN ALL QUADRANTS. THERE IS A LACERATION NOTED TO THE DISTAL PHALANX OF THE 4TH DIGIT ON THE LEFT HAND. LUCIA THEMA AND EDEMA OF THAT DIGIT IS NOTED. THERE IS SLIGHT IMPROVEMENT NOTED SINCE YESTERDAY. HIS VITALS THIS MORNING ARE: 97.9-70-20-98%-125/78. LABS WERE OBTAINED. WBC 8.0, RBC 4.21, HGB 13.0, HCT 37.7. SODIUM 143, POTASSIUM 3.9, CHLORIDE 106, BUN 12, CREATININE 0.83, GLUCOSE 132, CALCIUM 8.2, AST 14, ALT 16, ALK PHOS 69, TOTAL PROTEIN 6.2, ALBUMIN 2.7. WOUND CULTURE IS POSITIVE FOR STREPTOCOCCUS AGALACTIAE (GROUP B STREP). HE IS CURRENTLY RECEIVING NORMAL SALINE AT 80 ML/HR, VANCOMYCIN 1G IV BID, ZOSYN 3.375G IV TID, OTBS ACHS, HUMULIN R SLIDING SCALE, LOVENOX 40MG SC DAILY, AND HIS HOME MEDICATIONS WERE RESUMED. WE WILL CONTINUE WITH CURRENT PLAN OF CARE TODAY. OTHERWISE, WE PLAN TO FOLLOW-UP WITH AM LABS AND CONTINUE TO MONITOR. TIME SPENT ON CLINICAL ASSESSMENT, REVIWING LABS AND IMAGING, DECISION MAKING, AND DOCUMENTATION GREATER THAN 45 MINUTES. - Past Medical Family Social History Past Med/Fam/Surg Hx: No changes since H&P Allergies: Allergies No Known Drug Allergies Allergy (Verified 02/09/18 12:27) - Review of Systems ROS: No change since H&P - Vital Signs and I&O's Vital Signs: Temperature 98 F Pulse Rate [Bilateral Radial] 55 Pulse Rate 76 Respiratory Rate 20 Blood Pressure [Right Arm] 139/65 O2 Sat by Pulse Oximetry 96 Intake and Output: Intake & Output 01/25/22 01/26/22 01/27/22 01/28/22 11:59 11:59 11:59 11:59 Intake Total 1153 / 1153 4061 / 4061 3245 / 3245 Output Total 1200 / 1200 2600 / 2600 2225 / 2225 Balance -47 / -47 1461 / 1461 1020 / 1020 - Physical Exam Oriented: Normal Eyes: Normal Ear: Normal Nose: Normal Throat: Normal Respiratory: Normal Cardiovascular: Normal : Normal Auscultation: Bowel Sounds: Normal Palpation: Normal Tenderness: Normal Skin: Normal, Other (erythema and edema Lt 4th finger ) Psychiatric: Normal Mood Description: Calm Affect: Normal Speech Pattern: Clear, Appropriate - Laboratory and Diagnostics Result Diagrams: 01/28/22 04:10 01/28/22 04:10 Labs: 01/25/22 17:50 Blood Blood Culture - Preliminary 01/25/22 17:40 Blood Blood Culture - Preliminary Laboratory WBC 8.0 X10^3/uL (3.6-10.0) 01/28/22 04:10 RBC 4.21 X10^6/uL (4.7-6.0) L 01/28/22 04:10 Hgb 13.0 g/dL (13.5-18.0) L 01/28/22 04:10 Hct 37.7 % (42.0-54.0) L 01/28/22 04:10 MCV 89.6 fL (80.0-100.0) 01/28/22 04:10 MCH 30.8 pg (27.0-34.0) 01/28/22 04:10 MCHC 34.3 g/dL (33.0-35.0) 01/28/22 04:10 RDW 12.8 % (11.6-16.5) 01/28/22 04:10 Plt Count 205 X10^3/uL (150.0-450.0) 01/28/22 04:10 MPV 9.0 fL (7.4-11.0) 01/28/22 04:10 Neut % (Auto) 53.5 % (42.0-75.0) 01/28/22 04:10 Lymph % (Auto) 31.3 % (21.0-51.0) 01/28/22 04:10 [place] % (Auto) 10.7 % (0.0-13.0) 01/28/22 04:10 Eos % (Auto) 3.7 % (0.9-2.9) H 01/28/22 04:10 Baso % (Auto) 0.8 % (0.2-1.0) 01/28/22 04:10 Neut # (Auto) 4.3 x10^3/uL (2.2-4.8) 01/28/22 04:10 Lymph # (Auto) 2.5 X10^3/uL (1.3-2.9) 01/28/22 04:10 [place] # (Auto) 0.9 x10^3/uL (0.3-0.8) H 01/28/22 04:10 Eos # (Auto) 0.3 x10^3/uL (0.0-0.2) H 01/28/22 04:10 Baso # (Auto) 0.1 X10^3/uL (0.0-0.1) 01/28/22 04:10 Absolute Nucleated RBC 0.0 /100WBC 01/28/22 04:10 Sodium 143 mmol/L (136-145) 01/28/22 04:10 Corrected Sodium 144 mmol/L (136-145) 01/28/22 04:10 Potassium 3.9 mmol/L (3.5-5.1) 01/28/22 04:10 Chloride 106 mmol/L (98-107) 01/28/22 04:10 Carbon Dioxide 28.4 mmol/L (21-32) 01/28/22 04:10 BUN 12 mg/dL (7-18) 01/28/22 04:10 Creatinine 0.83 mg/dL (0.70-1.30) 01/28/22 04:10 Est GFR (MDRD) Af Amer > 60 (>60) 01/28/22 04:10 Est GFR (MDRD) Non-Af > 60 (>60) 01/28/22 04:10 Glucose 132 mg/dL (65-99) H 01/28/22 04:10 POC Glucose (mg/dL) 191 mg/dL (65-99) H 01/27/22 20:01 Calcium 8.2 mg/dL (8.5-10.1) L 01/28/22 04:10 Corrected Calcium 9.2 mg/dL (8.5-10.1) 01/28/22 04:10 Total Bilirubin 0.40 mg/dL (0.2-1.0) 01/28/22 04:10 AST 14 Units/L (15-37) L 01/28/22 04:10 ALT 16 Units/L (12-78) 01/28/22 04:10 Alkaline Phosphatase 69 Units/L (46-116) 01/28/22 04:10 C-Reactive Protein 29.30 mg/L (0-3.0) H 01/25/22 17:40 Total Protein 6.2 g/dL (6.4-8.2) L 01/28/22 04:10 Albumin 2.7 g/dL (3.4-5.0) L 01/28/22 04:10 Globulin 3.5 g/dL (2.5-4.5) 01/28/22 04:10 Albumin/Globulin Ratio 0.8 Ratio (1.1-2.1) L 01/28/22 04:10 Vancomycin Trough 10.4 ug/mL (15-20) L 01/27/22 20:01 SSTI (PCR) See scanned report 01/26/22 10:10 - Plan (1) Cellulitis of finger of left hand Status: Acute Plan: NORMAL SALINE AT 80 ML/HR, VANCOMYCIN 1G IV BID, ZOSYN 3.375G IV TID, OTBS ACHS, HUMULIN R SLIDING SCALE, LOVENOX 40MG SC DAILY, AND HIS HOME MEDICATIONS WERE RESUMED. (2) Diabetes Status: Chronic Qualifiers: Diabetes mellitus type: type 2 Diabetes mellitus intermediate accountant insulin use: with longterm use Diabetes mellitus complication status: with hyperglycemia Qualified Code(s): E11.65 - Type 2 diabetes mellitus with hyperglycemia; Z79.4 - alf (current) use of insulin (3) Hyperlipidemia Status: Chronic Qualifiers: Hyperlipidemia type: mixed hyperlipidemia Qualified Code(s): E78.2 - Mixed hyperlipidemia
[2022-01-28] MEDS ORDERED: ZOLOFT ONE (20:23)
[2022-01-28] MEDS: ZOLOFT PO SCH (20:38)
[2022-01-28] MEDS: SNACK - Diabetic Appropriate PO SCH (22:15)
[2022-01-28] MEDS: NovoLIN R (or HumuLIN R) SUBCUT PRN (22:30)
[2022-01-29] MEDS: NS 1,000 ML IV 1,000 ML IV SCH ×3 (01:55→18:56)
[2022-01-29 05:37] LABS: BASOPHILS # (AUTO) 0.1 X10^3/uL (0.0-0.1); BASOPHILS % (AUTO) 0.9 % (0.2-1.0); EOSINOPHILS # (AUTO) 0.3 x10^3/uL (0.0-0.2); EOSINOPHILS % (AUTO) 3.7 % (0.9-2.9); HEMATOCRIT 37.2 % (42.0-54.0); HEMOGLOBIN 12.8 g/dL (13.5-18.0); LYMPHOCYTES # (AUTO) 2.8 X10^3/uL (1.3-2.9); MEAN CORPUSCULAR HEMOGLOBIN 30.6 pg (27.0-34.0); MEAN CORPUSCULAR HGB CONC 34.3 g/dL (33.0-35.0); MEAN CORPUSCULAR VOLUME 89.1 fL (80.0-100.0); MEAN PLATELET VOLUME 9.3 fL (7.4-11.0); MONOCYTES # (AUTO) 0.8 x10^3/uL (0.3-0.8); MONOCYTES % (AUTO) 10.4 % (0.0-13.0); NEUTROPHILS # (AUTO) 3.7 x10^3/uL (2.2-4.8); RED BLOOD COUNT 4.18 X10^6/uL (4.7-6.0); RED CELL DISTRIBUTION WIDTH 12.9 % (11.6-16.5); WHITE BLOOD COUNT 7.7 X10^3/uL (3.6-10.0)
[2022-01-29] MEDS: ZOSYN VIAL 3.375 GRAMS 3.375 G in NS 100 ML IV 100 ML IV SCH ×3 (05:41→21:32)
[2022-01-29 05:48] LABS: ALANINE AMINOTRANSFERASE 15 Units/L (12-78); ALBUMIN 2.6 g/dL (3.4-5.0); ALKALINE PHOSPHATASE 67 Units/L (46-116); ASPARTATE AMINO TRANSFERASE 12 Units/L (15-37); BLOOD UREA NITROGEN 11 mg/dL (7-18); CALCIUM 8.3 mg/dL (8.5-10.1); CARBON DIOXIDE 27.3 mmol/L (21-32); CHLORIDE 108 mmol/L (98-107); COR CA(FOR HYPOALB) 9.4 mg/dL (8.5-10.1); COR NA(FOR HYPERGLY) 144 mmol/L (136-145); CREATININE 0.78 mg/dL (0.70-1.30); SODIUM 144 mmol/L (136-145); eGFR NON BLACK RACES > 60 (>60)
[2022-01-29] MEDS ORDERED: ZESTRIL TAB 20 MG ONE (09:13)
[2022-01-29] MEDS: ZESTRIL TAB 20 MG PO SCH (09:17)
[2022-01-29] MEDS: LIPITOR TAB 40 MG PO SCH (09:17)
[2022-01-29] MEDS: BACTROBAN TOPICAL OINT TOP SCH (09:17)
[2022-01-29] MEDS: ASPIRIN EC 81 MG PO SCH (09:17)
[2022-01-29] MEDS: VANCOMYCIN IV *PREMIX 1 G/200 ML BAG 1 G/200 ML PIGGYBACK IV SCH ×2 (09:17→20:29)
[2022-01-29] MEDS: ALOGLIPTIN 25 MG PO SCH (09:18)
[2022-01-29] MEDS: PATIENT'S HOME MEDICATION (Empagliflozin 25 mg Tablet) PO SCH (09:19)
[2022-01-29] MEDS: LOVENOX INJ 40 MG SYR SC SCH (09:19)
--- NOTE | 2022-01-29 10:28 | DR.PROGNOT ---
Hospital Progress Notes - Progress Note for Day of: Progress Note Date: 01/29/22 - Chief Complaint Chief Complaint: slow improvement with less swelling and minimal drainage Lt 4th finger . small amount od drainage was cultured .. WBC 7.7.. BS 112 CRP 29.3. - Past Medical Family Social History Past Med/Fam/Surg Hx: No changes since H&P Allergies: Allergies No Known Drug Allergies Allergy (Verified 02/09/18 12:27) - Review Of Systems ROS: No change since H&P - Vital Signs Vital Signs: Temperature 98 F Pulse Rate [Bilateral Radial] 56 Pulse Rate 76 Respiratory Rate 19 Blood Pressure [Right Arm] 119/77 O2 Sat by Pulse Oximetry 96 - Physical Exam Oriented: Normal Eyes: Normal Ear: Normal Nose: Normal Throat: Normal Respiratory: Normal Cardiovascular: Normal : Normal GI:Auscultation: Normal GI:Palpation: Normal GI: Tenderness: Normal Skin: Normal, Other (erythema and edema Lt 4th finger ) Psychiatric: Normal Mood Description: Calm Affect: Normal Speech Pattern: Clear, Appropriate - Laboratory and Diagnostics Result Diagrams: 01/29/22 04:30 01/29/22 04:30 Labs: 01/25/22 17:50 Blood Blood Culture - Preliminary 01/25/22 17:40 Blood Blood Culture - Preliminary Laboratory WBC 7.7 X10^3/uL (3.6-10.0) 01/29/22 04:30 RBC 4.18 X10^6/uL (4.7-6.0) L 01/29/22 04:30 Hgb 12.8 g/dL (13.5-18.0) L 01/29/22 04:30 Hct 37.2 % (42.0-54.0) L 01/29/22 04:30 MCV 89.1 fL (80.0-100.0) 01/29/22 04:30 MCH 30.6 pg (27.0-34.0) 01/29/22 04:30 MCHC 34.3 g/dL (33.0-35.0) 01/29/22 04:30 RDW 12.9 % (11.6-16.5) 01/29/22 04:30 Plt Count 220 X10^3/uL (150.0-450.0) 01/29/22 04:30 MPV 9.3 fL (7.4-11.0) 01/29/22 04:30 Neut % (Auto) 48.0 % (42.0-75.0) 01/29/22 04:30 Lymph % (Auto) 37.0 % (21.0-51.0) 01/29/22 04:30 [place] % (Auto) 10.4 % (0.0-13.0) 01/29/22 04:30 Eos % (Auto) 3.7 % (0.9-2.9) H 01/29/22 04:30 Baso % (Auto) 0.9 % (0.2-1.0) 01/29/22 04:30 Neut # (Auto) 3.7 x10^3/uL (2.2-4.8) 01/29/22 04:30 Lymph # (Auto) 2.8 X10^3/uL (1.3-2.9) 01/29/22 04:30 [place] # (Auto) 0.8 x10^3/uL (0.3-0.8) 01/29/22 04:30 Eos # (Auto) 0.3 x10^3/uL (0.0-0.2) H 01/29/22 04:30 Baso # (Auto) 0.1 X10^3/uL (0.0-0.1) 01/29/22 04:30 Absolute Nucleated RBC 0.1 /100WBC 01/29/22 04:30 Sodium 144 mmol/L (136-145) 01/29/22 04:30 Corrected Sodium 144 mmol/L (136-145) 01/29/22 04:30 Potassium 3.9 mmol/L (3.5-5.1) 01/29/22 04:30 Chloride 108 mmol/L (98-107) H 01/29/22 04:30 Carbon Dioxide 27.3 mmol/L (21-32) 01/29/22 04:30 BUN 11 mg/dL (7-18) 01/29/22 04:30 Creatinine 0.78 mg/dL (0.70-1.30) 01/29/22 04:30 Est GFR (MDRD) Af Amer > 60 (>60) 01/29/22 04:30 Est GFR (MDRD) Non-Af > 60 (>60) 01/29/22 04:30 Glucose 112 mg/dL (65-99) H 01/29/22 04:30 POC Glucose (mg/dL) 122 mg/dL (65-99) H 01/29/22 05:18 Calcium 8.3 mg/dL (8.5-10.1) L 01/29/22 04:30 Corrected Calcium 9.4 mg/dL (8.5-10.1) 01/29/22 04:30 Total Bilirubin 0.30 mg/dL (0.2-1.0) 01/29/22 04:30 AST 12 Units/L (15-37) L 01/29/22 04:30 ALT 15 Units/L (12-78) 01/29/22 04:30 Alkaline Phosphatase 67 Units/L (46-116) 01/29/22 04:30 C-Reactive Protein 29.30 mg/L (0-3.0) H 01/25/22 17:40 Total Protein 6.0 g/dL (6.4-8.2) L 01/29/22 04:30 Albumin 2.6 g/dL (3.4-5.0) L 01/29/22 04:30 Globulin 3.4 g/dL (2.5-4.5) 01/29/22 04:30 Albumin/Globulin Ratio 0.8 Ratio (1.1-2.1) L 01/29/22 04:30 Vancomycin Trough 10.4 ug/mL (15-20) L 01/27/22 20:01 SSTI (PCR) See scanned report 01/26/22 10:10 - Assessment and Plan 1: infected wound Lt 4 th finger with deep cellulitis . DM .. same local care ,soak in saline and H2O2 . IV ABT . wound cultures are not back yet .. - Problem Patient Problems: Patient Problems Diabetes (Chronic) E11.9 Cellulitis of finger of left hand (Acute) L03.012 Hyperlipidemia (Chronic) E78.5
--- NOTE | 2022-01-29 11:20 | PCM.PROG ---
Progress Note Progress Note for Day of Date of Exam: 01/29/22 Subjective Subjective: Patient seen at bedside, no events overnight. Patient is currently being treated for left hand 4th finger cellulitis. He states the redness and swelling is about the same. Dr Esparza saw the patient and took some cultures. Patient is currently on Vanc/Zosyn. Denies any side effects. Labs/imaging reviewed Blood Cx (-) Plan: follow Dr Esparza's recommendations, follow wound Cx. Continue IV Vanc/Zosyn. Continue home medications. Continue pain control. Monitor AM labs/imaging. Past Medical Family Social History Past Med/Fam/Surg Hx: No changes since H&P Allergies: Allergies No Known Drug Allergies Allergy (Verified 02/09/18 12:27) Review of Systems ROS: No change since H&P Vital Signs and I&O's Vital Signs: Temperature 98 F Pulse Rate [Bilateral Radial] 56 Pulse Rate 76 Respiratory Rate 19 Blood Pressure [Right Arm] 119/77 O2 Sat by Pulse Oximetry 96 Intake and Output: Intake & Output 01/26/22 01/27/22 01/28/22 01/29/22 23:59 23:59 23:59 23:59 Intake Total 3519 / 3519 3720 / 3720 2965 / 2965 1181 / 1181 Output Total 2900 / 2900 2525 / 2525 1000 / 1000 1400 / 1400 Balance 619 / 619 1195 / 1195 1964 / 1964 -219 / -219 Physical Exam Oriented: Normal Eyes: Normal Ear: Normal Nose: Normal Throat: Normal Respiratory: Normal Cardiovascular: Normal Auscultation: Bowel Sounds: Normal Tenderness: Normal Skin: Normal and Other (erythema and edema Lt 4th finger . Other finger amputations noted. ) Psychiatric: Normal Mood Description: Calm Affect: Normal Speech Pattern: Clear and Appropriate Laboratory and Diagnostics Result Diagrams: 01/29/22 04:30 01/29/22 04:30 Labs: 01/25/22 17:50 Blood Blood Culture - Preliminary 01/25/22 17:40 Blood Blood Culture - Preliminary Laboratory WBC 7.7 X10^3/uL (3.6-10.0) 01/29/22 04:30 RBC 4.18 X10^6/uL (4.7-6.0) L 01/29/22 04:30 Hgb 12.8 g/dL (13.5-18.0) L 01/29/22 04:30 Hct 37.2 % (42.0-54.0) L 01/29/22 04:30 MCV 89.1 fL (80.0-100.0) 01/29/22 04:30 MCH 30.6 pg (27.0-34.0) 01/29/22 04:30 MCHC 34.3 g/dL (33.0-35.0) 01/29/22 04:30 RDW 12.9 % (11.6-16.5) 01/29/22 04:30 Plt Count 220 X10^3/uL (150.0-450.0) 01/29/22 04:30 MPV 9.3 fL (7.4-11.0) 01/29/22 04:30 Neut % (Auto) 48.0 % (42.0-75.0) 01/29/22 04:30 Lymph % (Auto) 37.0 % (21.0-51.0) 01/29/22 04:30 Hinds % (Auto) 10.4 % (0.0-13.0) 01/29/22 04:30 Eos % (Auto) 3.7 % (0.9-2.9) H 01/29/22 04:30 Baso % (Auto) 0.9 % (0.2-1.0) 01/29/22 04:30 Neut # (Auto) 3.7 x10^3/uL (2.2-4.8) 01/29/22 04:30 Lymph # (Auto) 2.8 X10^3/uL (1.3-2.9) 01/29/22 04:30 Hinds # (Auto) 0.8 x10^3/uL (0.3-0.8) 01/29/22 04:30 Eos # (Auto) 0.3 x10^3/uL (0.0-0.2) H 01/29/22 04:30 Baso # (Auto) 0.1 X10^3/uL (0.0-0.1) 01/29/22 04:30 Absolute Nucleated RBC 0.1 /100WBC 01/29/22 04:30 ESR 19 MM/HOUR (0-15) H 01/29/22 10:42 Sodium 144 mmol/L (136-145) 01/29/22 04:30 Corrected Sodium 144 mmol/L (136-145) 01/29/22 04:30 Potassium 3.9 mmol/L (3.5-5.1) 01/29/22 04:30 Chloride 108 mmol/L (98-107) H 01/29/22 04:30 Carbon Dioxide 27.3 mmol/L (21-32) 01/29/22 04:30 BUN 11 mg/dL (7-18) 01/29/22 04:30 Creatinine 0.78 mg/dL (0.70-1.30) 01/29/22 04:30 Est GFR (MDRD) Af Amer > 60 (>60) 01/29/22 04:30 Est GFR (MDRD) Non-Af > 60 (>60) 01/29/22 04:30 Glucose 112 mg/dL (65-99) H 01/29/22 04:30 POC Glucose (mg/dL) 107 mg/dL (65-99) H 01/29/22 11:02 Calcium 8.3 mg/dL (8.5-10.1) L 01/29/22 04:30 Corrected Calcium 9.4 mg/dL (8.5-10.1) 01/29/22 04:30 Total Bilirubin 0.30 mg/dL (0.2-1.0) 01/29/22 04:30 AST 12 Units/L (15-37) L 01/29/22 04:30 ALT 15 Units/L (12-78) 01/29/22 04:30 Alkaline Phosphatase 67 Units/L (46-116) 01/29/22 04:30 C-Reactive Protein 3.10 mg/L (0-3.0) H 01/29/22 10:42 Total Protein 6.0 g/dL (6.4-8.2) L 01/29/22 04:30 Albumin 2.6 g/dL (3.4-5.0) L 01/29/22 04:30 Globulin 3.4 g/dL (2.5-4.5) 01/29/22 04:30 Albumin/Globulin Ratio 0.8 Ratio (1.1-2.1) L 01/29/22 04:30 Vancomycin Trough 10.4 ug/mL (15-20) L 01/27/22 20:01 SSTI (PCR) See scanned report 01/26/22 10:10 Plan (1) Cellulitis of finger of left hand: Status: Acute (2) Diabetes: Status: Chronic Qualifiers: Diabetes mellitus complication status: with hyperglycemia Diabetes mellitus snf insulin use: with snf use Diabetes mellitus type: type 2 Qualified Code(s): E11.65 - Type 2 diabetes mellitus with hyperglycemia; Z7 9.4 - manager long term care (current) use of insulin (3) Hyperlipidemia: Status: Chronic Qualifiers: Hyperlipidemia type: mixed hyperlipidemia Qualified Code(s): E78.2 - Mixed hyperlipidemia (4) Amputated finger: Status: Acute Qualifiers: Encounter type: initial encounter Qualified Code(s): S68.119A - Complete traumatic metacarpophalangeal amputation of unspecified finger, initial encounter (5) HTN (hypertension): Status: Acute
[2022-01-29] MEDS ORDERED: ZOLOFT ONE (20:22)
[2022-01-29] MEDS: ZOLOFT PO SCH (20:28)
[2022-01-29] MEDS: SNACK - Diabetic Appropriate PO SCH (20:35)
[2022-01-29] MEDS: NovoLIN R (or HumuLIN R) SUBCUT PRN (21:33)
[2022-01-30] MEDS: NS 1,000 ML IV 1,000 ML IV SCH ×3 (01:07→13:42)
[2022-01-30] MEDS: ZOSYN VIAL 3.375 GRAMS 3.375 G in NS 100 ML IV 100 ML IV SCH ×3 (05:06→21:29)
[2022-01-30 05:29] LABS: BASOPHILS # (AUTO) 0.1 X10^3/uL (0.0-0.1); BASOPHILS % (AUTO) 0.8 % (0.2-1.0); EOSINOPHILS # (AUTO) 0.3 x10^3/uL (0.0-0.2); EOSINOPHILS % (AUTO) 3.7 % (0.9-2.9); HEMATOCRIT 38.2 % (42.0-54.0); HEMOGLOBIN 13.1 g/dL (13.5-18.0); LYMPHOCYTES # (AUTO) 2.8 X10^3/uL (1.3-2.9); LYMPHOCYTES % (AUTO) 34.1 % (21.0-51.0); MEAN CORPUSCULAR HEMOGLOBIN 30.7 pg (27.0-34.0); MEAN CORPUSCULAR HGB CONC 34.2 g/dL (33.0-35.0); MEAN CORPUSCULAR VOLUME 89.7 fL (80.0-100.0); MEAN PLATELET VOLUME 9.1 fL (7.4-11.0); MONOCYTES # (AUTO) 0.8 x10^3/uL (0.3-0.8); MONOCYTES % (AUTO) 10.2 % (0.0-13.0); NEUTROPHILS # (AUTO) 4.2 x10^3/uL (2.2-4.8); NEUTROPHILS % (AUTO) 51.2 % (42.0-75.0); RED BLOOD COUNT 4.26 X10^6/uL (4.7-6.0); RED CELL DISTRIBUTION WIDTH 12.5 % (11.6-16.5); WHITE BLOOD COUNT 8.2 X10^3/uL (3.6-10.0)
[2022-01-30 05:40] LABS: ALANINE AMINOTRANSFERASE 16 Units/L (12-78); ALBUMIN 2.7 g/dL (3.4-5.0); ALKALINE PHOSPHATASE 69 Units/L (46-116); ASPARTATE AMINO TRANSFERASE 16 Units/L (15-37); BLOOD UREA NITROGEN 14 mg/dL (7-18); CALCIUM 8.2 mg/dL (8.5-10.1); CARBON DIOXIDE 28.9 mmol/L (21-32); CHLORIDE 108 mmol/L (98-107); COR CA(FOR HYPOALB) 9.2 mg/dL (8.5-10.1); COR NA(FOR HYPERGLY) 143 mmol/L (136-145); CREATININE 0.81 mg/dL (0.70-1.30); SODIUM 143 mmol/L (136-145); TOTAL PROTEIN 6.1 g/dL (6.4-8.2); eGFR NON BLACK RACES > 60 (>60)
[2022-01-30] MEDS ORDERED: STERILE WATER IRRIGATION IR ONE (08:13)
[2022-01-30] MEDS ORDERED: STERILE WATER IRRIGATION IR PRN (08:20)
[2022-01-30] MEDS ORDERED: ZESTRIL TAB 20 MG ONE (08:26)
[2022-01-30] MEDS ORDERED: PHARMACY COMMENT IV NR (08:30)
--- NOTE | 2022-01-30 09:02 | DR.PROGNOT ---
Hospital Progress Notes - Progress Note for Day of: Progress Note Date: 01/30/22 - Chief Complaint Chief Complaint: slow improvement with less swelling and minimal drainage Lt 4th finger . sed rate 19. WBC 8.2 Vanco 8.3.... CRP 3.10. afebrile .. - Past Medical Family Social History Past Med/Fam/Surg Hx: No changes since H&P Allergies: Allergies No Known Drug Allergies Allergy (Verified 02/09/18 12:27) - Review Of Systems ROS: No change since H&P - Vital Signs Vital Signs: Temperature 97.9 F Pulse Rate [Bilateral Radial] 50 Pulse Rate 76 Respiratory Rate 18 Blood Pressure [Left Arm] 120/59 Blood Pressure [Right Arm] 118/60 O2 Sat by Pulse Oximetry 94 - Physical Exam Oriented: Normal Eyes: Normal Ear: Normal Nose: Normal Throat: Normal Respiratory: Normal Cardiovascular: Normal : Normal GI:Auscultation: Normal GI:Palpation: Normal GI: Tenderness: Normal Skin: Normal, Other (erythema and edema Lt 4th finger . Other finger amputations noted.) Psychiatric: Normal Mood Description: Calm Affect: Normal Speech Pattern: Clear, Appropriate - Laboratory and Diagnostics Result Diagrams: 01/30/22 04:23 01/30/22 04:23 Labs: 01/29/22 09:53 Finger - Left Ring Wound Gram Stain - Final 01/29/22 09:53 Finger - Left Ring Wound Culture - Preliminary 01/25/22 17:50 Blood Blood Culture - Preliminary 01/25/22 17:40 Blood Blood Culture - Preliminary Laboratory WBC 8.2 X10^3/uL (3.6-10.0) 01/30/22 04:23 RBC 4.26 X10^6/uL (4.7-6.0) L 01/30/22 04:23 Hgb 13.1 g/dL (13.5-18.0) L 01/30/22 04:23 Hct 38.2 % (42.0-54.0) L 01/30/22 04:23 MCV 89.7 fL (80.0-100.0) 01/30/22 04:23 MCH 30.7 pg (27.0-34.0) 01/30/22 04:23 MCHC 34.2 g/dL (33.0-35.0) 01/30/22 04:23 RDW 12.5 % (11.6-16.5) 01/30/22 04:23 Plt Count 226 X10^3/uL (150.0-450.0) 01/30/22 04:23 MPV 9.1 fL (7.4-11.0) 01/30/22 04:23 Neut % (Auto) 51.2 % (42.0-75.0) 01/30/22 04:23 Lymph % (Auto) 34.1 % (21.0-51.0) 01/30/22 04:23 [place] % (Auto) 10.2 % (0.0-13.0) 01/30/22 04:23 Eos % (Auto) 3.7 % (0.9-2.9) H 01/30/22 04:23 Baso % (Auto) 0.8 % (0.2-1.0) 01/30/22 04:23 Neut # (Auto) 4.2 x10^3/uL (2.2-4.8) 01/30/22 04:23 Lymph # (Auto) 2.8 X10^3/uL (1.3-2.9) 01/30/22 04:23 [place] # (Auto) 0.8 x10^3/uL (0.3-0.8) 01/30/22 04:23 Eos # (Auto) 0.3 x10^3/uL (0.0-0.2) H 01/30/22 04:23 Baso # (Auto) 0.1 X10^3/uL (0.0-0.1) 01/30/22 04:23 Absolute Nucleated RBC 0.0 /100WBC 01/30/22 04:23 ESR 19 MM/HOUR (0-15) H 01/29/22 10:42 Sodium 143 mmol/L (136-145) 01/30/22 04:23 Corrected Sodium 143 mmol/L (136-145) 01/30/22 04:23 Potassium 3.9 mmol/L (3.5-5.1) 01/30/22 04:23 Chloride 108 mmol/L (98-107) H 01/30/22 04:23 Carbon Dioxide 28.9 mmol/L (21-32) 01/30/22 04:23 BUN 14 mg/dL (7-18) 01/30/22 04:23 Creatinine 0.81 mg/dL (0.70-1.30) 01/30/22 04:23 Est GFR (MDRD) Af Amer > 60 (>60) 01/30/22 04:23 Est GFR (MDRD) Non-Af > 60 (>60) 01/30/22 04:23 Glucose 114 mg/dL (65-99) H 01/30/22 04:23 POC Glucose (mg/dL) 123 mg/dL (65-99) H 01/30/22 05:05 Calcium 8.2 mg/dL (8.5-10.1) L 01/30/22 04:23 Corrected Calcium 9.2 mg/dL (8.5-10.1) 01/30/22 04:23 Total Bilirubin 0.20 mg/dL (0.2-1.0) 01/30/22 04:23 AST 16 Units/L (15-37) 01/30/22 04:23 ALT 16 Units/L (12-78) 01/30/22 04:23 Alkaline Phosphatase 69 Units/L (46-116) 01/30/22 04:23 C-Reactive Protein 3.10 mg/L (0-3.0) H 01/29/22 10:42 Total Protein 6.1 g/dL (6.4-8.2) L 01/30/22 04:23 Albumin 2.7 g/dL (3.4-5.0) L 01/30/22 04:23 Globulin 3.4 g/dL (2.5-4.5) 01/30/22 04:23 Albumin/Globulin Ratio 0.8 Ratio (1.1-2.1) L 01/30/22 04:23 Vancomycin Trough 10.4 ug/mL (15-20) L 01/27/22 20:01 Random Vancomycin 8.3 ug/mL 01/30/22 08:26 SSTI (PCR) See scanned report 01/26/22 10:10 - Assessment and Plan 1: infected wound Lt 4 th finger with deep cellulitis . DM .. same local care ,soak in saline and H2O2 . IV ABT . wound cultures are not back yet .. - Problem Patient Problems: Patient Problems Diabetes (Chronic) E11.9 Cellulitis of finger of left hand (Acute) L03.012 Hyperlipidemia (Chronic) E78.5
[2022-01-30] MEDS: ZESTRIL TAB 20 MG PO SCH (09:04)
[2022-01-30] MEDS: LIPITOR TAB 40 MG PO SCH (09:04)
[2022-01-30] MEDS: LOVENOX INJ 40 MG SYR SC SCH (09:04)
[2022-01-30] MEDS: ASPIRIN EC 81 MG PO SCH (09:04)
[2022-01-30] MEDS: ALOGLIPTIN 25 MG PO SCH (09:06)
[2022-01-30] MEDS: BACTROBAN TOPICAL OINT TOP SCH (09:07)
[2022-01-30] MEDS: PATIENT'S HOME MEDICATION (Empagliflozin 25 mg Tablet) PO SCH (09:26)
[2022-01-30] MEDS: VANCOMYCIN IV *PREMIX 1.25 G/250 ML BAG 1.25 G/250 ML PIGGYBACK IV SCH ×2 (10:18→20:28)
--- NOTE | 2022-01-30 10:42 | PCM.PROG ---
Progress Note Progress Note for Day of Date of Exam: 01/30/22 Subjective Subjective: Patient seen at bedside, no events overnight. Patient is currently being treated for left hand 4th finger cellulitis. He states the redness and swelling is slightly better today. Patient is currently on Vanc/Zosyn. Denies any side effects. Dr Esparza also seeing the patient. Labs/imaging reviewed Blood Cx (-) Wound Cx: Coag + staph and Gram (-) rods Plan: follow Dr Esparza's recommendations, follow final wound Cx. Continue IV Vanc/Zosyn. Continue home medications. Continue pain control. Monitor AM labs/imaging. Past Medical Family Social History Past Med/Fam/Surg Hx: No changes since H&P Allergies: Allergies No Known Drug Allergies Allergy (Verified 02/09/18 12:27) Review of Systems ROS: No change since H&P Vital Signs and I&O's Vital Signs: Temperature 97.8 F Pulse Rate [Bilateral Radial] 47 Pulse Rate 76 Respiratory Rate 18 Blood Pressure [Left Arm] 143/63 Blood Pressure [Right Arm] 118/60 O2 Sat by Pulse Oximetry 93 Intake and Output: Intake & Output 01/27/22 01/28/22 01/29/22 01/30/22 23:59 23:59 23:59 22:59 Intake Total 3720 / 3720 2965 / 2965 2281 / 2281 780 / 780 Output Total 2525 / 2525 1000 / 1000 4400 / 4400 500 / 500 Balance 1195 / 1195 1965 / 1965 -9 / -2119 280 / 280 Physical Exam Oriented: Normal Eyes: Normal Ear: Normal Nose: Normal Throat: Normal Respiratory: Normal Cardiovascular: Normal : Normal Auscultation: Bowel Sounds: Normal Tenderness: Normal Skin: Normal and Other (erythema and edema Lt 4th finger - slightly improved . Other finger amputations noted. ) Psychiatric: Normal Mood Description: Calm Affect: Normal Speech Pattern: Clear and Appropriate Laboratory and Diagnostics Result Diagrams: 01/30/22 04:23 01/30/22 04:23 Labs: 01/29/22 09:53 Finger - Left Ring Wound Gram Stain - Final 01/29/22 09:53 Finger - Left Ring Wound Culture - Preliminary 01/25/22 17:50 Blood Blood Culture - Preliminary 01/25/22 17:40 Blood Blood Culture - Preliminary Laboratory WBC 8.2 X10^3/uL (3.6-10.0) 01/30/22 04:23 RBC 4.26 X10^6/uL (4.7-6.0) L 01/30/22 04:23 Hgb 13.1 g/dL (13.5-18.0) L 01/30/22 04:23 Hct 38.2 % (42.0-54.0) L 01/30/22 04:23 MCV 89.7 fL (80.0-100.0) 01/30/22 04:23 MCH 30.7 pg (27.0-34.0) 01/30/22 04:23 MCHC 34.2 g/dL (33.0-35.0) 01/30/22 04:23 RDW 12.5 % (11.6-16.5) 01/30/22 04:23 Plt Count 226 X10^3/uL (150.0-450.0) 01/30/22 04:23 MPV 9.1 fL (7.4-11.0) 01/30/22 04:23 Neut % (Auto) 51.2 % (42.0-75.0) 01/30/22 04:23 Lymph % (Auto) 34.1 % (21.0-51.0) 01/30/22 04:23 [place] % (Auto) 10.2 % (0.0-13.0) 01/30/22 04:23 Eos % (Auto) 3.7 % (0.9-2.9) H 01/30/22 04:23 Baso % (Auto) 0.8 % (0.2-1.0) 01/30/22 04:23 Neut # (Auto) 4.2 x10^3/uL (2.2-4.8) 01/30/22 04:23 Lymph # (Auto) 2.8 X10^3/uL (1.3-2.9) 01/30/22 04:23 [place] # (Auto) 0.8 x10^3/uL (0.3-0.8) 01/30/22 04:23 Eos # (Auto) 0.3 x10^3/uL (0.0-0.2) H 01/30/22 04:23 Baso # (Auto) 0.1 X10^3/uL (0.0-0.1) 01/30/22 04:23 Absolute Nucleated RBC 0.0 /100WBC 01/30/22 04:23 ESR 19 MM/HOUR (0-15) H 01/29/22 10:42 Sodium 143 mmol/L (136-145) 01/30/22 04:23 Corrected Sodium 143 mmol/L (136-145) 01/30/22 04:23 Potassium 3.9 mmol/L (3.5-5.1) 01/30/22 04:23 Chloride 108 mmol/L (98-107) H 01/30/22 04:23 Carbon Dioxide 28.9 mmol/L (21-32) 01/30/22 04:23 BUN 14 mg/dL (7-18) 01/30/22 04:23 Creatinine 0.81 mg/dL (0.70-1.30) 01/30/22 04:23 Est GFR (MDRD) Af Amer > 60 (>60) 01/30/22 04:23 Est GFR (MDRD) Non-Af > 60 (>60) 01/30/22 04:23 Glucose 114 mg/dL (65-99) H 01/30/22 04:23 POC Glucose (mg/dL) 123 mg/dL (65-99) H 01/30/22 05:05 Calcium 8.2 mg/dL (8.5-10.1) L 01/30/22 04:23 Corrected Calcium 9.2 mg/dL (8.5-10.1) 01/30/22 04:23 Total Bilirubin 0.20 mg/dL (0.2-1.0) 01/30/22 04:23 AST 16 Units/L (15-37) 01/30/22 04:23 ALT 16 Units/L (12-78) 01/30/22 04:23 Alkaline Phosphatase 69 Units/L (46-116) 01/30/22 04:23 C-Reactive Protein 3.10 mg/L (0-3.0) H 01/29/22 10:42 Total Protein 6.1 g/dL (6.4-8.2) L 01/30/22 04:23 Albumin 2.7 g/dL (3.4-5.0) L 01/30/22 04:23 Globulin 3.4 g/dL (2.5-4.5) 01/30/22 04:23 Albumin/Globulin Ratio 0.8 Ratio (1.1-2.1) L 01/30/22 04:23 Vancomycin Trough 10.4 ug/mL (15-20) L 01/27/22 20:01 Random Vancomycin 8.3 ug/mL 01/30/22 08:26 SSTI (PCR) See scanned report 01/26/22 10:10 Plan (1) Cellulitis of finger of left hand: Status: Acute (2) Diabetes: Status: Chronic Qualifiers: Diabetes mellitus complication status: with hyperglycemia Diabetes mellitus fdc insulin use: with fdc use Diabetes mellitus type: type 2 Qualified Code(s): E11.65 - Type 2 diabetes mellitus with hyperglycemia; Z79.4 - emt intermediate (current) use of insulin (3) Hyperlipidemia: Status: Chronic Qualifiers: Hyperlipidemia type: mixed hyperlipidemia Qualified Code(s): E78.2 - Mixed hyperlipidemia (4) Amputated finger: Status: Acute Qualifiers: Encounter type: initial encounter Qualified Code(s): S68.119A - Complete traumatic metacarpophalangeal amputation of unspecified finger, initial encounter (5) HTN (hypertension): Status: Acute
[2022-01-30] MEDS: HYDROGEN PEROXIDE 3% EXT PRN (11:34)
[2022-01-30] MEDS: NovoLIN R (or HumuLIN R) SUBCUT PRN (16:49)
[2022-01-30] MEDS: SNACK - Diabetic Appropriate PO SCH (20:05)
[2022-01-30] MEDS ORDERED: ZOLOFT ONE (20:07)
[2022-01-30] MEDS: ZOLOFT PO SCH (20:23)
[2022-01-31] MEDS: NS 1,000 ML IV 1,000 ML IV SCH ×4 (02:02→21:16)
[2022-01-31] MEDS: ZOSYN VIAL 3.375 GRAMS 3.375 G in NS 100 ML IV 100 ML IV SCH ×3 (05:09→22:29)
[2022-01-31 05:10] LABS: BASOPHILS # (AUTO) 0.1 X10^3/uL (0.0-0.1); BASOPHILS % (AUTO) 0.9 % (0.2-1.0); EOSINOPHILS # (AUTO) 0.3 x10^3/uL (0.0-0.2); EOSINOPHILS % (AUTO) 3.9 % (0.9-2.9); HEMATOCRIT 37.3 % (42.0-54.0); HEMOGLOBIN 12.6 g/dL (13.5-18.0); LYMPHOCYTES # (AUTO) 2.8 X10^3/uL (1.3-2.9); LYMPHOCYTES % (AUTO) 35.7 % (21.0-51.0); MEAN CORPUSCULAR HEMOGLOBIN 30.2 pg (27.0-34.0); MEAN CORPUSCULAR HGB CONC 33.8 g/dL (33.0-35.0); MEAN CORPUSCULAR VOLUME 89.5 fL (80.0-100.0); MEAN PLATELET VOLUME 9.1 fL (7.4-11.0); MONOCYTES # (AUTO) 0.8 x10^3/uL (0.3-0.8); MONOCYTES % (AUTO) 9.8 % (0.0-13.0); NEUTROPHILS % (AUTO) 49.7 % (42.0-75.0); RED BLOOD COUNT 4.17 X10^6/uL (4.7-6.0); RED CELL DISTRIBUTION WIDTH 12.5 % (11.6-16.5)
[2022-01-31 05:14] LABS: BLOOD UREA NITROGEN 15 mg/dL (7-18); CALCIUM 8.3 mg/dL (8.5-10.1); CARBON DIOXIDE 27.3 mmol/L (21-32); CHLORIDE 108 mmol/L (98-107); COR NA(FOR HYPERGLY) 144 mmol/L (136-145); CREATININE 0.87 mg/dL (0.70-1.30); SODIUM 143 mmol/L (136-145); eGFR NON BLACK RACES > 60 (>60)
[2022-01-31] MEDS ORDERED: ZESTRIL TAB 20 MG ONE (08:48)
[2022-01-31] MEDS: VANCOMYCIN IV *PREMIX 1.25 G/250 ML BAG 1.25 G/250 ML PIGGYBACK IV SCH ×2 (09:04→21:13)
[2022-01-31] MEDS: ZESTRIL TAB 20 MG PO SCH (09:05)
[2022-01-31] MEDS: LOVENOX INJ 40 MG SYR SC SCH (09:05)
[2022-01-31] MEDS: ALOGLIPTIN 25 MG PO SCH (09:05)
[2022-01-31] MEDS: LIPITOR TAB 40 MG PO SCH (09:05)
[2022-01-31] MEDS: ASPIRIN EC 81 MG PO SCH (09:05)
[2022-01-31] MEDS: BACTROBAN TOPICAL OINT TOP SCH (09:06)
[2022-01-31] MEDS: PATIENT'S HOME MEDICATION (Empagliflozin 25 mg Tablet) PO SCH (09:28)
--- NOTE | 2022-01-31 11:07 | PCM.PROG ---
Progress Note - Progress Note for Day of Date of Exam: 01/31/22 - Subjective Subjective: WAS ADMITTED FOR CELLULITIS OF THE 4TH DIGIT ON THE LEFT HAND DUE TO RECENT INJURY. PATIENT WAS APPARENTLY SKINNING A DEER AND CUT HIS FINGER. 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 NO OSTEOMYELITIS WAS IDENTIFIED ON THE HAND XRAY. HE HAS RECEIVED IV ANTIBIOTICS AND WOUND CARE OVER THE WEEKEND. TODAY, HE IS ALERT AND ORIENTED, LYING IN BED ON MORNING ROUNDS. HE DENIES CURRENT COMPLAINTS. ON EXAMINATION, HEART IS REGULAR IN RATE AND RHYTHM. BILATERAL LUNGS ARE CLEAR TO AUSCULTATION. ABDOMEN IS ROUND, SOFT, AND NON-TENDER WITH NORMAL BOWEL SOUNDS NOTED IN ALL QUADRANTS. THERE IS A SCABBERD LACERATION NOTED TO THE DISTAL PHALANX OF THE 4TH DIGIT ON THE LEFT HAND. ERYTHEMA AND EDEMA OF THAT DIGIT IS NOTED, HOWEVER, MILD IMPROVEMENT NOTED SINCE MONDAY. HIS VITALS THIS MORNING ARE: 98.4-37-94-96-144/62. LABS WERE OBTAINED. WBC 8.0, RBC 4.17, HGB 12.6, HCT 37.3, SODIUM 143, POTASSIUM 3.9, CHLORIDE 108, BUN 15, CREATININE 0.87, GLUCOSE 130, CALCIUM 8.3. WOUND CULTURE IS POSITIVE FOR STREPTOCOCCUS AGALACTIAE (GROUP B STREP) AND MRSA. HE IS CURRENTLY RECEIVING NORMAL SALINE AT 80 ML/HR, VANCOMYCIN 1.25G IV BID, ZOSYN 3.375G IV TID, OTBS ACHS, HUMULIN R SLIDING SCALE, LOVENOX 40MG SC DAILY, AND HIS HOME MEDICATIONS WERE RESUMED. WE WILL CONTINUE WITH CURRENT PLAN OF CARE TODAY. WE WILL CONSULT ANESTHESIA FOR A PICC LINE AND PLAN TO CONTINUE IV VANCOMYCIN FOR TWO ADDITIONAL WEEKS. OTHERWISE, WE PLAN TO FOLLOW-UP WITH AM LABS AND CONTINUE TO MONITOR. TIME SPENT ON CLINICAL ASSESSMENT, REVIWING LABS AND IMAGING, DECISION MAKING, AND DOCUMENTATION GREATER THAN 45 MINUTES. - Past Medical Family Social History Past Med/Fam/Surg Hx: No changes since H&P Allergies: Allergies No Known Drug Allergies Allergy (Verified 02/09/18 12:27) - Review of Systems ROS: No change since H&P - Vital Signs and I&O's Vital Signs: Temperature 98.3 F Pulse Rate [Bilateral Radial] 48 Pulse Rate 76 Respiratory Rate 18 Blood Pressure [Left Arm] 144/62 Blood Pressure [Right Arm] 118/60 O2 Sat by Pulse Oximetry 96 Intake and Output: Intake & Output 01/28/22 01/29/22 01/30/22 01/31/22 12:59 12:59 11:59 11:59 Intake Total 3275 / 3275 Output Total 2400 / 2400 Balance 875 / 875 - Physical Exam Oriented: Normal Eyes: Normal Ear: Normal Nose: Normal Throat: Normal Respiratory: Normal Cardiovascular: Normal : Normal Auscultation: Bowel Sounds: Normal Palpation: Normal Tenderness: Normal Skin: Normal, Other (erythema and edema Lt 4th finger - slightly improved . Other finger amputations noted.) Psychiatric: Normal Mood Description: Calm Affect: Normal Speech Pattern: Clear, Appropriate - Laboratory and Diagnostics Result Diagrams: 01/31/22 04:09 01/31/22 04:09 Labs: 01/29/22 09:53 Finger - Left Ring Wound Gram Stain - Final 01/29/22 09:53 Finger - Left Ring Wound Culture - Preliminary Methicillin Resis Staph Aureus 01/25/22 17:50 Blood Blood Culture - Preliminary 01/25/22 17:40 Blood Blood Culture - Preliminary Laboratory WBC 8.0 X10^3/uL (3.6-10.0) 01/31/22 04:09 RBC 4.17 X10^6/uL (4.7-6.0) L 01/31/22 04:09 Hgb 12.6 g/dL (13.5-18.0) L 01/31/22 04:09 Hct 37.3 % (42.0-54.0) L 01/31/22 04:09 MCV 89.5 fL (80.0-100.0) 01/31/22 04:09 MCH 30.2 pg (27.0-34.0) 01/31/22 04:09 MCHC 33.8 g/dL (33.0-35.0) 01/31/22 04:09 RDW 12.5 % (11.6-16.5) 01/31/22 04:09 Plt Count 230 X10^3/uL (150.0-450.0) 01/31/22 04:09 MPV 9.1 fL (7.4-11.0) 01/31/22 04:09 Neut % (Auto) 49.7 % (42.0-75.0) 01/31/22 04:09 Lymph % (Auto) 35.7 % (21.0-51.0) 01/31/22 04:09 [place] % (Auto) 9.8 % (0.0-13.0) 01/31/22 04:09 Eos % (Auto) 3.9 % (0.9-2.9) H 01/31/22 04:09 Baso % (Auto) 0.9 % (0.2-1.0) 01/31/22 04:09 Neut # (Auto) 4.0 x10^3/uL (2.2-4.8) 01/31/22 04:09 Lymph # (Auto) 2.8 X10^3/uL (1.3-2.9) 01/31/22 04:09 [place] # (Auto) 0.8 x10^3/uL (0.3-0.8) 01/31/22 04:09 Eos # (Auto) 0.3 x10^3/uL (0.0-0.2) H 01/31/22 04:09 Baso # (Auto) 0.1 X10^3/uL (0.0-0.1) 01/31/22 04:09 Absolute Nucleated RBC 0.0 /100WBC 01/31/22 04:09 ESR 19 MM/HOUR (0-15) H 01/29/22 10:42 Sodium 143 mmol/L (136-145) 01/31/22 04:09 Corrected Sodium 144 mmol/L (136-145) 01/31/22 04:09 Potassium 3.9 mmol/L (3.5-5.1) 01/31/22 04:09 Chloride 108 mmol/L (98-107) H 01/31/22 04:09 Carbon Dioxide 27.3 mmol/L (21-32) 01/31/22 04:09 BUN 15 mg/dL (7-18) 01/31/22 04:09 Creatinine 0.87 mg/dL (0.70-1.30) 01/31/22 04:09 Est GFR (MDRD) Af Amer > 60 (>60) 01/31/22 04:09 Est GFR (MDRD) Non-Af > 60 (>60) 01/31/22 04:09 Glucose 130 mg/dL (65-99) H 01/31/22 04:09 POC Glucose (mg/dL) 150 mg/dL (65-99) H 01/31/22 05:03 Calcium 8.3 mg/dL (8.5-10.1) L 01/31/22 04:09 Corrected Calcium 9.2 mg/dL (8.5-10.1) 01/30/22 04:23 Total Bilirubin 0.20 mg/dL (0.2-1.0) 01/30/22 04:23 AST 16 Units/L (15-37) 01/30/22 04:23 ALT 16 Units/L (12-78) 01/30/22 04:23 Alkaline Phosphatase 69 Units/L (46-116) 01/30/22 04:23 C-Reactive Protein 3.10 mg/L (0-3.0) H 01/29/22 10:42 Total Protein 6.1 g/dL (6.4-8.2) L 01/30/22 04:23 Albumin 2.7 g/dL (3.4-5.0) L 01/30/22 04:23 Globulin 3.4 g/dL (2.5-4.5) 01/30/22 04:23 Albumin/Globulin Ratio 0.8 Ratio (1.1-2.1) L 01/30/22 04:23 Vancomycin Trough 10.4 ug/mL (15-20) L 01/27/22 20:01 Random Vancomycin 8.3 ug/mL 01/30/22 08:26 SSTI (PCR) See scanned report 01/26/22 10:10 - Plan (1) Cellulitis of finger of left hand Status: Acute Plan: NORMAL SALINE AT 80 ML/HR, VANCOMYCIN 1.25G IV BID, ZOSYN 3.375G IV TID, OTBS ACHS, HUMULIN R SLIDING SCALE, LOVENOX 40MG SC DAILY, AND HIS HOME MEDICATIONS WERE RESUMED. (2) Diabetes Status: Chronic Qualifiers: Diabetes mellitus type: type 2 Diabetes mellitus group home insulin use: with group home use Diabetes mellitus complication status: with hyperglycemia Qualified Code(s): E11.65 - Type 2 diabetes mellitus with hyperglycemia; Z79.4 - tank terminal gauger (current) use of insulin (3) Hyperlipidemia Status: Chronic Qualifiers: Hyperlipidemia type: mixed hyperlipidemia Qualified Code(s): E78.2 - Mixed hyperlipidemia
[2022-01-31] MEDS: HYDROGEN PEROXIDE 3% EXT PRN (13:10)
[2022-01-31] MEDS ORDERED: MARCAINE 0.25% INJ ONE (14:00)
[2022-01-31] MEDS ORDERED: NS 100 ML IV 100 ML ONE ×2 (14:44→20:07)
[2022-01-31] MEDS ORDERED: ANCEF VIAL 1 GRAM ONE (14:44)
[2022-01-31] MEDS ORDERED: POLYMYXIN B SULFATE ONE (14:52)
[2022-01-31] MEDS ORDERED: BETADINE SOLN ONE (15:06)
[2022-01-31] MEDS ORDERED: DILAUDID INJ ONE (15:35)
[2022-01-31] MEDS ORDERED: BACTROBAN TOPICAL OINT ONE (15:44)
[2022-01-31] MEDS: NovoLIN R (or HumuLIN R) SUBCUT PRN ×2 (16:46→21:27)
[2022-01-31] MEDS: SNACK - Diabetic Appropriate PO SCH (20:00)
[2022-01-31] MEDS ORDERED: ZOLOFT ONE (20:05)
[2022-01-31] MEDS ORDERED: PHARMACY COMMENT IV NR (20:30)
[2022-01-31 21:05] LABS: CREATININE 0.93 mg/dL (0.70-1.30); VANCOMYCIN,TROUGH 12.6 ug/mL (15-20)
[2022-01-31] MEDS: ZOLOFT PO SCH (21:13)
[2022-02-01] MEDS ORDERED: NS 100 ML IV 100 ML ONE (05:14)
[2022-02-01] MEDS: ZOSYN VIAL 3.375 GRAMS 3.375 G in NS 100 ML IV 100 ML IV SCH (05:26)
[2022-02-01 05:28] LABS: BASOPHILS # (AUTO) 0.1 X10^3/uL (0.0-0.1); BASOPHILS % (AUTO) 0.9 % (0.2-1.0); EOSINOPHILS # (AUTO) 0.4 x10^3/uL (0.0-0.2); HEMATOCRIT 37.4 % (42.0-54.0); HEMOGLOBIN 12.9 g/dL (13.5-18.0); LYMPHOCYTES # (AUTO) 2.8 X10^3/uL (1.3-2.9); LYMPHOCYTES % (AUTO) 30.4 % (21.0-51.0); MEAN CORPUSCULAR HEMOGLOBIN 30.8 pg (27.0-34.0); MEAN CORPUSCULAR HGB CONC 34.4 g/dL (33.0-35.0); MEAN CORPUSCULAR VOLUME 89.6 fL (80.0-100.0); MEAN PLATELET VOLUME 9.3 fL (7.4-11.0); MONOCYTES # (AUTO) 0.8 x10^3/uL (0.3-0.8); MONOCYTES % (AUTO) 9.1 % (0.0-13.0); NEUTROPHILS % (AUTO) 55.6 % (42.0-75.0); RED BLOOD COUNT 4.17 X10^6/uL (4.7-6.0); RED CELL DISTRIBUTION WIDTH 12.5 % (11.6-16.5); WHITE BLOOD COUNT 9.1 X10^3/uL (3.6-10.0)
[2022-02-01] MEDS: NS 1,000 ML IV 1,000 ML IV SCH (05:34)
[2022-02-01 05:37] LABS: ALANINE AMINOTRANSFERASE 24 Units/L (12-78); ALBUMIN 2.8 g/dL (3.4-5.0); ALKALINE PHOSPHATASE 59 Units/L (46-116); ASPARTATE AMINO TRANSFERASE 22 Units/L (15-37); BLOOD UREA NITROGEN 10 mg/dL (7-18); CALCIUM 8.2 mg/dL (8.5-10.1); CARBON DIOXIDE 30.5 mmol/L (21-32); CHLORIDE 106 mmol/L (98-107); COR CA(FOR HYPOALB) 9.2 mg/dL (8.5-10.1); CREATININE 0.84 mg/dL (0.70-1.30); SODIUM 143 mmol/L (136-145); TOTAL PROTEIN 6.1 g/dL (6.4-8.2); eGFR NON BLACK RACES > 60 (>60)
[2022-02-01] MEDS ORDERED: ZESTRIL TAB 20 MG ONE (09:13)
[2022-02-01] MEDS: LIPITOR TAB 40 MG PO SCH (09:20)
[2022-02-01] MEDS: ASPIRIN EC 81 MG PO SCH (09:20)
[2022-02-01] MEDS: ZESTRIL TAB 20 MG PO SCH (09:21)
[2022-02-01] MEDS: LOVENOX INJ 40 MG SYR SC SCH (09:21)
[2022-02-01] MEDS: VANCOMYCIN IV *PREMIX 1.25 G/250 ML BAG 1.25 G/250 ML PIGGYBACK IV SCH (09:21)
[2022-02-01] MEDS: BACTROBAN TOPICAL OINT TOP SCH (09:22)
[2022-02-01] MEDS: ALOGLIPTIN 25 MG PO SCH (09:31)
[2022-02-01] MEDS: PATIENT'S HOME MEDICATION (Empagliflozin 25 mg Tablet) PO SCH (09:31)
[2022-02-01 09:33] VITALS: BP 113/56
--- NOTE | 2022-02-01 10:32 | DR.PROGNOT ---
Hospital Progress Notes - Progress Note for Day of: Progress Note Date: 02/01/22 - Chief Complaint Chief Complaint: post op debridement Lt 4th finger . doing well today . minimal drainage with intact dressing. - Past Medical Family Social History Past Med/Fam/Surg Hx: No changes since H&P Allergies: Allergies No Known Drug Allergies Allergy (Verified 02/09/18 12:27) - Review Of Systems ROS: No change since H&P - Vital Signs Vital Signs: Temperature 98.1 F Pulse Rate [Bilateral Radial] 58 Pulse Rate 46 Respiratory Rate 19 Blood Pressure [Left Arm] 113/56 Blood Pressure [Right Arm] 118/60 Blood Pressure 108/58 O2 Sat by Pulse Oximetry 95 - Physical Exam Oriented: Normal Eyes: Normal Ear: Normal Nose: Normal Throat: Normal Respiratory: Normal Cardiovascular: Normal : Normal GI:Auscultation: Normal GI:Palpation: Normal GI: Tenderness: Normal Skin: Normal, Other (erythema and edema Lt 4th finger - slightly improved . Other finger amputations noted.) Psychiatric: Normal Mood Description: Calm Affect: Normal Speech Pattern: Clear, Appropriate - Laboratory and Diagnostics Result Diagrams: 02/01/22 04:02 02/01/22 04:02 Labs: 01/31/22 15:40 Finger - Left Ring Wound Gram Stain - Final 01/31/22 15:40 Finger - Left Ring Wound Culture - Preliminary 01/29/22 09:53 Finger - Left Ring Wound Gram Stain - Final 01/29/22 09:53 Finger - Left Ring Wound Culture - Final Methicillin Resis Staph Aureus Edwardsiella Tarda Enterobacter [place] Proteus Vulgaris Strep Agalactiae - (Group B) 01/25/22 17:50 Blood Blood Culture - Final 01/25/22 17:40 Blood Blood Culture - Final Laboratory WBC 9.1 X10^3/uL (3.6-10.0) 02/01/22 04:02 RBC 4.17 X10^6/uL (4.7-6.0) L 02/01/22 04:02 Hgb 12.9 g/dL (13.5-18.0) L 02/01/22 04:02 Hct 37.4 % (42.0-54.0) L 02/01/22 04:02 MCV 89.6 fL (80.0-100.0) 02/01/22 04:02 MCH 30.8 pg (27.0-34.0) 02/01/22 04:02 MCHC 34.4 g/dL (33.0-35.0) 02/01/22 04:02 RDW 12.5 % (11.6-16.5) 02/01/22 04:02 Plt Count 242 X10^3/uL (150.0-450.0) 02/01/22 04:02 MPV 9.3 fL (7.4-11.0) 02/01/22 04:02 Neut % (Auto) 55.6 % (42.0-75.0) 02/01/22 04:02 Lymph % (Auto) 30.4 % (21.0-51.0) 02/01/22 04:02 [place] % (Auto) 9.1 % (0.0-13.0) 02/01/22 04:02 Eos % (Auto) 4.0 % (0.9-2.9) H 02/01/22 04:02 Baso % (Auto) 0.9 % (0.2-1.0) 02/01/22 04:02 Neut # (Auto) 5.0 x10^3/uL (2.2-4.8) H 02/01/22 04:02 Lymph # (Auto) 2.8 X10^3/uL (1.3-2.9) 02/01/22 04:02 [place] # (Auto) 0.8 x10^3/uL (0.3-0.8) 02/01/22 04:02 Eos # (Auto) 0.4 x10^3/uL (0.0-0.2) H 02/01/22 04:02 Baso # (Auto) 0.1 X10^3/uL (0.0-0.1) 02/01/22 04:02 Absolute Nucleated RBC 0.0 /100WBC 02/01/22 04:02 ESR 19 MM/HOUR (0-15) H 01/29/22 10:42 Sodium 143 mmol/L (136-145) 02/01/22 04:02 Corrected Sodium TNP 02/01/22 04:02 Potassium 4.0 mmol/L (3.5-5.1) 02/01/22 04:02 Chloride 106 mmol/L (98-107) 02/01/22 04:02 Carbon Dioxide 30.5 mmol/L (21-32) 02/01/22 04:02 BUN 10 mg/dL (7-18) 02/01/22 04:02 Creatinine 0.84 mg/dL (0.70-1.30) 02/01/22 04:02 Est GFR (MDRD) Af Amer > 60 (>60) 02/01/22 04:02 Est GFR (MDRD) Non-Af > 60 (>60) 02/01/22 04:02 Glucose 91 mg/dL (65-99) 02/01/22 04:02 POC Glucose (mg/dL) 98 mg/dL (65-99) 02/01/22 05:30 Calcium 8.2 mg/dL (8.5-10.1) L 02/01/22 04:02 Corrected Calcium 9.2 mg/dL (8.5-10.1) 02/01/22 04:02 Total Bilirubin 0.30 mg/dL (0.2-1.0) 02/01/22 04:02 AST 22 Units/L (15-37) 02/01/22 04:02 ALT 24 Units/L (12-78) 02/01/22 04:02 Alkaline Phosphatase 59 Units/L (46-116) 02/01/22 04:02 C-Reactive Protein 3.10 mg/L (0-3.0) H 01/29/22 10:42 Total Protein 6.1 g/dL (6.4-8.2) L 02/01/22 04:02 Albumin 2.8 g/dL (3.4-5.0) L 02/01/22 04:02 Globulin 3.3 g/dL (2.5-4.5) 02/01/22 04:02 Albumin/Globulin Ratio 0.8 Ratio (1.1-2.1) L 02/01/22 04:02 Vancomycin Trough 12.6 ug/mL (15-20) L 01/31/22 20:28 Random Vancomycin 8.3 ug/mL 01/30/22 08:26 SSTI (PCR) See scanned report 01/26/22 10:10 Tissue Pathology To follow 01/31/22 15:41 - Assessment and Plan 1: infected wound Lt 4 th finger with deep cellulitis . positive for MRSA . DM .. to place PIC line , on Vancomycin . same local care . to follow in one week .. - Problem Patient Problems: Patient Problems Diabetes (Chronic) E11.9 Cellulitis of finger of left hand (Acute) L03.012 Hyperlipidemia (Chronic) E78.5
[2022-02-01] MEDS ORDERED: INVanz INJ 1 GRAM VIAL 1 G in NS 100 ML IV 100 ML IV NR (12:00)
--- NOTE | 2022-02-01 12:45 | DR.UPDATE ---
H&P Update H&P Reviewed: Yes Any changes to H&P?: No Patient was examined?: Yes Procedures (ALL) - Central Line Placement PCM.CLCO: written consent Time out performed: Yes Patient placed pm monitor/pulse ox: Yes MD prep: mask, gown, gloves, other Centrial line prep: chlorhexidine scrub, sterile drapes applied Local anesthsia used: lidocane 1% Ultrasound used for placement: Yes (left basilic and cephalic id'd via u/s. unable to pass wire thru basilic) Central line lumen ininserted: double Post procedure: good blood return, all ports aspirated, flushed,capped, sterile dressing applied Post procedure xray: tip oc catheter in good position, no pneumothorax seen Patient tolerated procedure: Yes Complications: none
--- NOTE | 2022-02-01 13:08 | RAD ---
HISTORYpicc line placementSTUDYCHEST, 1 VIEWCOMPARISONNoneFINDINGSThe cardiomediastinal silhouette is normal in size. Left PICC placement with tip overlying the SVC. No acute airspace disease. No pneumothorax or effusion. The bony thorax appears intact.IMPRESSIONExpected positioning of left PICC with tip overlying the SVC.Electronically signed by: FANI SALAZAR (Feb 01, 2022 13:06:44)
== END 2022-02-01 15:10 | disposition home or self-care (01) | DRG 603 ==
LOC: ICU
PROVIDERS: ADMIT Internal Medicine; ATTEND Internal Medicine
DX: B96.89 Other specified bacterial agents as the cause of diseases classified elsewhere; R79.82 Elevated C-reactive protein (CRP); E78.2 Mixed hyperlipidemia; B95.62 Methicillin resistant Staphylococcus aureus infection as the cause of diseases classified elsewhere; B95.1 Streptococcus, group B, as the cause of diseases classified elsewhere; L03.012 Cellulitis of left finger; I10 Essential (primary) hypertension; Z79.4 Long term (current) use of insulin; R70.0 Elevated erythrocyte sedimentation rate; E11.65 Type 2 diabetes mellitus with hyperglycemia; Z89.022 Acquired absence of left finger(s); B96.4 Proteus (mirabilis) (morganii) as the cause of diseases classified elsewhere